=== PATIENT | female | born 1945 | race American Indian/Alaskan Native ===

== ENCOUNTER 2016-08-28 09:46 | Outpatient (CLI) | payer OTHER ==
--- NOTE | 2016-08-28 10:46 | Mammography Report ---
BILATERAL MAMMOGRAM: Compared to 08/26/15. CAD study utilized. FINDINGS: Predominance of adipose tissue bilaterally. Benign density left breast. No mass or microcalcification. IMPRESSION: Benign findings. Annual follow-up recommended. BI-RADS CATEGORY: 2 = Benign ACR BI-RADS MAMMOGRAPHIC CODES: 0 = Needs additional imaging evaluation; 1 = Negative; 2 = Benign; 3 = Probably benign; 4 = Suspicious; 5 = Malignant; 6 = Known biopsy-proven malignancy COMMENT: 1. Dense breast tissue, i.e., adenosis, fibrocystic changes, etc., may obscure an underlying neoplasm. 2. Approximately 10% of cancers are not detected with mammography. 3. A negative mammography report should not delay biopsy if a clinically suspicious mass is present. COMMENT: Patient follow-up letters are generated in [employer].
== END 2016-08-28 09:47 | disposition home or self-care (01) ==
LOC: MAMMO 09:46
PROVIDERS: ATTEND General Practice
DX: Z12.31 Encounter for screening mammogram for malignant neoplasm of breast (principal)
CPT/HCPCS: 77067; G0202

== ENCOUNTER 2016-10-29 12:10 | Inpatient (IN) | payer OTHER ==
[2016-10-29 13:05] LABS: Basophils % (Auto) 0.8 % (0.0-1.8); Eosinophils % (Auto) 1.7 % (0.0-4.3); Hematocrit 46.6 % (30.3-42.9); Hemoglobin 15.2 gm/dl (10.1-14.3); Mean Corpuscular HGB Conc 33 % (30-34); Mean Corpuscular Hemoglobin 29 pg (28-32); Mean Corpuscular Volume 88 fl (79-97); Platelet Count 601 K/mm3 (140-440); Red Blood Count 5.28 M/mm3 (3.65-5.03); Red Cell Distribution Width 14.8 % (13.2-15.2); White Blood Count 12.6 K/mm3 (4.5-11.0)
[2016-10-29] MEDS ORDERED: MORPHINE IV ONE (13:09)
[2016-10-29] MEDS ORDERED: ZOFRAN IV ONE (13:09)
--- NOTE | 2016-10-29 13:09 | Emergency Department Report ---
HPI - General Chief Complaint: Chest Pain Time Seen by Provider: 10/29/16 12:52 - HPI HPI: Room 2 The patient is a 70-year-old female presenting with a chief complaint of chest pain. The patient states this morning she felt "not steady." The patient states she checked her blood pressure and found to be 114/99 with a heart rate of 154. The patient states she felt as though she was going to pass out but never lost consciousness. Patient states she developed substernal chest tightness which is still present. Patient currently gives her chest tightness a score of 6/10. The patient admits to shortness of breath, diaphoresis and nausea without vomiting associated with chest tightness. The patient states her last stress test occurred and was abnormal. The patient states she's never had a cardiac catheterization Location: Chest Duration: [see above] Quality: Tightness Severity: 6/10 Modifying factors: [see above] Context: [see above] Mode of transportation: [not driving] ED Past Medical Hx - Past Medical History Previous Medical History?: Yes Hx Hypertension: Yes (4yrs) Hx GERD: Yes (1999) Hx Liver Disease: Yes (HEPATITIS C) Hx Asthma: Yes Additional medical history: Carpal tunnel syndrome - Surgical History Past Surgical History?: Yes Additional Surgical History: hysterectomy - Family History Family history: no significant - Social History Smoking Status: Current Every Day Smoker (1/4 pack per day) - Medications Home Medications: Home Medications Medication Instructions Recorded Confirmed Last Taken Type Esomeprazole Magnesium [NexIUM] 40 mg PO PRN PRN 09/01/14 10/04/15 Unknown History Fluticasone (Nf) [Flovent HFA] 2 puff IH DAILY 09/01/14 10/04/15 Unknown History HYDROcodone/ACETAMINOPHEN 1 tab PO Q6HR PRN 09/01/14 10/04/15 Unknown History [HYDROcodone-Acetaminophen 5-325] Levalbuterol Tartrate [Xopenex Hfa] 2 puff IH PRN 09/01/14 10/04/15 Unknown History Montelukast [Singulair] 10 mg PO DAILY PRN 09/01/14 10/04/15 Unknown History Lisinopril [Zestril TAB] 20 mg PO BID 10/04/15 10/04/15 Unknown History ED Review of Systems ROS: Stated complaint: PALPITATION, FEELING LIKE PASS OUT Other details as noted in HPI Comment: All other systems reviewed and negative Constitutional: diaphoresis Eyes: denies: eye pain, eye discharge, vision change ENT: denies: ear pain, throat pain Respiratory: shortness of breath Cardiovascular: chest pain, palpitations Endocrine: no symptoms reported Gastrointestinal: nausea. denies: abdominal pain, vomiting, diarrhea Genitourinary: denies: urgency, dysuria, discharge Musculoskeletal: denies: back pain, joint swelling, arthralgia Skin: denies: rash, lesions Neurological: denies: headache, weakness, paresthesias Psychiatric: denies: anxiety, depression Hematological/Lymphatic: denies: easy bleeding, easy bruising Physical Exam - Physical Exam Vital Signs: Vital Signs 10/29/16 12:26 Temperature 98.7 F Pulse Rate 85 Respiratory 20 Rate Blood Pressure 165/105 O2 Sat by Pulse 97 Oximetry Physical Exam: GENERAL: The patient is well-developed well-nourished female lying on stretcher not appearing to be in acute distress. [] HEENT: Normocephalic. Atraumatic. Extraocular motions are intact. Patient has moist mucous membranes. NECK: Supple. Trachea midline CHEST/LUNGS: Clear to auscultation. There is no respiratory distress noted. HEART/CARDIOVASCULAR: Regular. There is no tachycardia. There is no gallop rub or murmur. ABDOMEN: Abdomen is soft, nontender. Patient has normal bowel sounds. There is no abdominal distention. SKIN: There is no rash. There is no edema. There is no diaphoresis. NEURO: The patient is awake, alert, and oriented. The patient is cooperative. The patient has normal speech MUSCULOSKELETAL: There is no evidence of acute injury. ED Course Vital Signs 10/29/16 12:26 Temperature 98.7 F Pulse Rate 85 Respiratory 20 Rate Blood Pressure 165/105 O2 Sat by Pulse 97 Oximetry ED Medical Decision Making - Lab Data Result diagrams: 10/29/16 12:45 Laboratory Tests 10/29/16 10/29/16 12:45 12:45 WBC 12.6 H RBC 5.28 H Hgb 15.2 H Hct 46.6 H MCV 88 MCH 29 MCHC 33 RDW 14.8 Plt Count 601 H Lymph % (Auto) 30.5 [place] % (Auto) 9.7 H Eos % (Auto) 1.7 Baso % (Auto) 0.8 Lymph # 3.8 [place] # 1.2 H Eos # 0.2 Baso # 0.1 Seg Neutrophils % 57.3 Seg Neutrophils # 7.2 Sodium 141 Potassium 3.8 Chloride 103.6 Carbon Dioxide 21 L Anion Gap 20 BUN 9 Creatinine 0.6 L Estimated GFR > 60 BUN/Creatinine Ratio 15.00 Glucose 103 H Calcium 10.6 H Troponin T < 0.010 - EKG Data -: EKG Interpreted by Me EKG shows normal: sinus rhythm Rate: normal - EKG Data When compared to previous EKG there are: no significant change Interpretation: unchanged when compared t (10/10/2015) - Radiology Data Radiology results: image reviewed (chest x-ray) interpreted by me: Chest x-ray-no focal infiltrates, no pneumothorax - Differential Diagnosis ACS, pericarditis, GERD Critical care attestation.: If time is entered above; I have spent that time in minutes in the direct care of this critically ill patient, excluding procedure time. ED Disposition Clinical Impression: Chest pain, Hypercalcemia Disposition: OP ADMITTED IP TO THIS HOSP Is pt being admited?: Yes Does the pt Need Aspirin: No (allergy) Condition: Fair Instructions: Chest Pain (ED) Referrals: PRIMARY CARE, [Primary Care Provider] - 3-5 Days Time of Disposition: 13:23 (hospitalist paged)
[2016-10-29 13:16] LABS: Anion Gap 20 mmol/L; Blood Urea Nitrogen 9 mg/dL (7-17); Calcium 10.6 mg/dL (8.4-10.2); Carbon Dioxide 21 mmol/L (22-30); Chloride 103.6 mmol/L (98-107); Glucose 103 mg/dL (65-100); Potassium 3.8 mmol/L (3.6-5.0); Sodium 141 mmol/L (137-145)
[2016-10-29] MEDS ORDERED: NACL 0.9% 1000 ML 1,000 ML IV ONE (13:21)
[2016-10-29] MEDS ORDERED: PLAVIX PO ONE (13:22)
[2016-10-29] MEDS ORDERED: NITRO-BID 2% TP ONE (13:22)
--- NOTE | 2016-10-29 13:31 | History and Physical Report ---
History of Present Illness Chief complaint: My chest is hurting History of present illness: 70 YO Female with HTN, HCV, Nicotine Dependence, GERD, Asthma presents to ED for evaluation. Pt states that she awoke from sleep this morning and felt "not steady" and felt as though she was going to pass out. The patient states she checked her blood pressure and heart rate, and discovered a normal BP but a heart rate of 154. Patient states she subsequently developed pain in her chest. Pain is substernal, 6/10, nonradiating, not worsened with exertion, or relieved with rest. No associated with shortness of breath, diaphoresis. Pt denies prolonged travel/immobility,Individual/family history of DVT/PE, trauma, syncope, hemoptysis, productive cough, or recent ill contacts. Past History Past Medical History: GERD, hepatitis, hypertension Past Surgical History: hysterectomy Social history: , lives with family, smoking. denies: alcohol abuse, prescription drug abuse, IV drug use Family history: diabetes, hypertension Medications and Allergies Allergies Allergy/AdvReac Type Severity Reaction Status Date / Time amoxicillin Allergy Itching Verified 10/10/15 12:19 codeine Allergy GASTRIC Verified 10/10/15 12:19 IRRITATION aspirin AdvReac Nausea,GASTRIC Verified 10/10/15 12:19 IRRITATION Home Medications Medication Instructions Recorded Confirmed Last Taken Type Fluticasone (Nf) [Flovent HFA] 2 puff IH DAILY 09/01/14 10/29/16 Unknown History Levalbuterol Tartrate [Xopenex Hfa] 2 puff IH PRN 09/01/14 10/29/16 Unknown History Montelukast [Singulair] 10 mg PO DAILY 09/01/14 10/29/16 Unknown History Lisinopril [Zestril TAB] 40 mg PO DAILY 10/04/15 10/29/16 Unknown History Atenolol [Tenormin] 25 mg PO DAILY 10/29/16 10/29/16 Unknown History Active Meds: Active Medications Sodium Chloride (Nacl 0.9% 1000 Ml) 1,000 mls @ 999 mls/hr IV ONCE ONE Stop: 10/29/16 14:21 Review of Systems All systems: negative Cardiovascular: chest pain Exam - Constitutional Vitals: Temp Pulse Resp BP Pulse Ox 98.7 F 80 17 153/103 97 10/29/16 12:26 10/29/16 13:00 10/29/16 13:00 10/29/16 13:00 10/29/16 13:00 General appearance: Present: no acute distress, well-nourished - EENT Eyes: Present: PERRL ENT: hearing intact, clear oral mucosa - Neck Neck: Present: supple, normal ROM - Respiratory Respiratory effort: normal Respiratory: bilateral: CTA - Cardiovascular Heart Sounds: Present: S1 & S2. Absent: rub, click - Extremities Extremities: pulses symmetrical, No edema Peripheral Pulses: within normal limits - Abdominal General gastrointestinal: Present: soft, non-tender, non-distended, normal bowel sounds Female genitourinary: Present: normal - Integumentary Integumentary: Present: clear, warm, dry - Musculoskeletal Musculoskeletal: gait normal, strength equal bilaterally - Psychiatric Psychiatric: appropriate mood/affect, intact judgment & insight - Neurologic Neurologic: CNII-XII intact, moves all extremities Results - Labs CBC & Chem 7: 10/29/16 12:45 10/29/16 12:45 Labs: Abnormal lab results 10/29/16 10/29/16 Range/Units 12:45 12:45 WBC 12.6 H (4.5-11.0) K/mm3 RBC 5.28 H (3.65-5.03) M/mm3 Hgb 15.2 H (10.1-14.3) gm/dl Hct 46.6 H (30.3-42.9) % Plt Count 601 H (140-440) K/mm3 [place] % (Auto) 9.7 H (0.0-7.3) % [place] # 1.2 H (0.0-0.8) K/mm3 Carbon Dioxide 21 L (22-30) mmol/L Creatinine 0.6 L (0.7-1.2) mg/dL Glucose 103 H (65-100) mg/dL Calcium 10.6 H (8.4-10.2) mg/dL Assessment and Plan - Patient Problems (1) ACS (acute coronary syndrome) Current Visit: Yes Status: Acute Plan to address problem: Chest Pain protocol: Cardiology consulted, serial cardiac enzymes, ekg, telemetry, Echo, supportive care. (2) Accelerated hypertension Current Visit: Yes Status: Acute Plan to address problem: monitor bp q shift, continue current therapy (3) Malnutrition Current Visit: Yes Status: Acute Plan to address problem: Moderate-severe: Encourage increased protein intake, (4) GERD (gastroesophageal reflux disease) Current Visit: Yes Status: Acute Qualifiers: Esophagitis presence: E Plan to address problem: ppi therapy (5) Nicotine dependence Current Visit: Yes Status: Acute Qualifiers: Nicotine product type: N Substance use status: S Plan to address problem: Pt counseled, pt refused to pick quit date. (6) DVT prophylaxis Current Visit: Yes Status: Acute
[2016-10-29] MEDS ORDERED: NON-FORMULARY (Esomeprazole Magnesium [Nexium] 40 MG) PO PRN (13:54)
[2016-10-29] MEDS ORDERED: ZOFRAN IV PRN (13:56)
[2016-10-29] MEDS ORDERED: DULCOLAX PR PRN (13:56)
[2016-10-29] MEDS ORDERED: SODIUM CHLORIDE FLUSH SYRINGE 10 ML IV PRN ×2 (13:56→13:58)
[2016-10-29] MEDS ORDERED: MILK OF MAGNESIA PO PRN (13:56)
[2016-10-29] MEDS ORDERED: TYLENOL PO PRN (13:56)
[2016-10-29] MEDS ORDERED: LEVALBUTEROL TARTRATE IH SCH (14:00)
--- NOTE | 2016-10-29 14:02 | XRay Report ---
AP CHEST :10/29/16 12:36:00 CLINICAL: Cough and heart palpitations. COMPARISON:10/10/15 FINDINGS: Normal heart and pulmonary vasculature. The lungs are normally expanded and clear. Scoliosis of the thoracic spine and mild degenerative change of the right shoulder. IMPRESSION: No acute cardiopulmonary process.
[2016-10-29] MEDS ORDERED: PROTONIX PO PRN (14:28)
[2016-10-29 14:37] LABS: Creatine Kinase MB 2.3 ng/mL (0.0-4.0)
[2016-10-29 14:38] LABS: Creatine Kinase 134 units/L (30-135)
[2016-10-29] MEDS ORDERED: PROVENTIL IH PRN (14:39)
--- NOTE | 2016-10-29 14:48 | Ultrasound Report ---
FINAL REPORT PROCEDURE: US ABDOMEN COMPLETE TECHNIQUE: Real-time sonography in multiple planes of the abdomen was performed with image documentation. CPT 68990 HISTORY: ab pain COMPARISON: No prior studies are available for comparison. FINDINGS: Liver: Normal size and echotexture with no evidence of cystic or solid mass lesions. Gallbladder: Fluid filled. No gallstones, wall thickening, pericholecystic fluid, or sonographic Rosales's sign. Intrahepatic bile ducts: Normal caliber . Extrahepatic bile ducts: Normal caliber. Pancreas: Normal as visualized with suboptimal depiction of the pancreatic tail. Aorta: Visualized portions appear normal. IVC: Visualized portions appear normal. RIGHT kidney: Normal echotexture. No focal renal mass, calculus, or hydronephrosis. Length: 11.4cm. LEFT kidney: Normal echotexture. No focal renal mass, calculus, or hydronephrosis . Length: 11.3cm. Spleen: Normal size and echotexture. No focal lesions. Intraperitoneal fluid: None . Other: None . IMPRESSION: Normal Examination.
--- NOTE | 2016-10-29 17:19 | Consultation ---
History of Present Illness Consult date: 10/29/16 Consult reason: chest pain (palpitations and near syncopal episode) History of present illness: The patient is a 70-year-old female presenting with a chief complaint of chest pain. The patient states this morning she felt "not steady." The patient states she checked her blood pressure and found to be 114/99 with a heart rate of 154. The patient states she felt as though she was going to pass out but never lost consciousness. Patient states she developed substernal chest tightness which is still present. Patient currently gives her chest tightness a score of 6/10. The patient admits to shortness of breath, diaphoresis and nausea without vomiting associated with chest tightness. Past History Past Medical History: GERD, hepatitis, hypertension (since 2011 or so,being monitored by Dr.prathima Mccarty.), other (hx. 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 denies: alcohol abuse, prescription drug abuse, IV drug use Family history: diabetes, hypertension Medications and Allergies Allergies Allergy/AdvReac Type Severity Reaction Status Date / Time amoxicillin Allergy Itching Verified 10/10/15 12:19 codeine Allergy GASTRIC Verified 10/10/15 12:19 IRRITATION aspirin AdvReac Nausea,GASTRIC Verified 10/10/15 12:19 IRRITATION Home Medications Medication Instructions Recorded Confirmed Last Taken Type Fluticasone (Nf) [Flovent HFA] 2 puff IH DAILY 09/01/14 10/29/16 Unknown History Levalbuterol Tartrate [Xopenex Hfa] 2 puff IH PRN 09/01/14 10/29/16 Unknown History Montelukast [Singulair] 10 mg PO DAILY 09/01/14 10/29/16 Unknown History Lisinopril [Zestril TAB] 40 mg PO DAILY 10/04/15 10/29/16 Unknown History Atenolol [Tenormin] 25 mg PO DAILY 10/29/16 10/29/16 Unknown History Active Meds: Active Medications Acetaminophen (Tylenol) 650 mg PO Q4H PRN PRN Reason: Pain MILD(1-3)/Fever >100.5/ABDUL Albuterol (Proventil) 2.5 mg IH Q4HRT PRN PRN Reason: Shortness Of Breath Bisacodyl (Dulcolax) 10 mg MD QDAY PRN PRN Reason: Constipation unrelieved by MOM Fluticasone Propionate (Flonase) 100 mcg NS QDAY ZARI Lisinopril (Zestril) 20 mg PO BID ZARI Magnesium Hydroxide (Milk Of Magnesia) 30 ml PO Q4H PRN PRN Reason: Constipation Ondansetron HCl (Zofran) 4 mg IV Q8H PRN PRN Reason: N/V unrelieved by Reglan Pantoprazole Sodium (Protonix) 40 mg PO DAILY PRN PRN Reason: UPSET STOMACH Sodium Chloride (Sodium Chloride Flush Syringe 10 Ml) 10 ml IV PRN PRN PRN Reason: LINE FLUSH Review of Systems Constitutional: no weight gain Ears, nose, mouth and throat: no nasal discharge Cardiovascular: chest pain, palpitations, lightheadedness, shortness of breath Respiratory: shortness of breath Gastrointestinal: no abdominal pain Genitourinary Female: no dysuria Menstruation: post hysterectomy Musculoskeletal: no myalgias Integumentary: no rash Neurological: no paralysis Psychiatric: no anxiety Physical Examination Vital Signs Temp Pulse Resp BP Pulse Ox 98.7 F 85 20 165/105 97 10/29/16 12:26 10/29/16 12:26 10/29/16 12:26 10/29/16 12:26 10/29/16 12:26 General appearance: no acute distress HEENT: Positive: PERRL, Mucus Membranes Moist Neck: Positive: neck supple, trachea midline Cardiac: Positive: Reg Rate and Rhythm. Negative: Audible Murmur Lungs: Positive: clear to auscultation Neuro: Positive: Grossly Intact Abdomen: Positive: Unremarkable Skin: Negative: Rash Extremities: Absent: edema Results 10/29/16 12:45 10/29/16 12:45 Cardiac Enzymes 10/29/16 Range/Units 14:07 CK-MB (CK-2) 2.3 (0.0-4.0) ng/mL Laboratory Tests 10/29/16 10/29/16 12:45 14:07 Total Creatine Kinase 134 CK-MB (CK-2) 2.3 CK-MB (CK-2) Rel Index 1.7 Troponin T < 0.010 EKG interpretations - EKG Sinus rhythms and dysrhythmias: sinus rhythm AV and intraventricular conduction: 1 AV block, right bundle branch block, left anterior fascicular Repolarization changes or abnormalities: repolarization abn secondary to ventricular hypertrophy Assessment and Plan Patient was not feeling well when she woke up this morning and and around 11:00 patient started having rapid heartbeat, associated with anterior chest discomfort and feeling of passing out, did not pass out. This lasted for a while and got better. She was by herself at that time. When she checked her pulse, presently her heart rate is around 154/mt. Subsequently she was feeling well. She came to the emergency room. Patient was evaluated by Dr. Brian in the office in August of this year and had a stress test and echocardiogram done according to her, apparently was given atenolol. She was supposed to take 2 times a day if She has frequent palpitations and otherwise she was supposed to take once a day. She is taking atenolol regularly. Patient claims these episodes of palpitations and near syncope are of recent onset. Never passed out., Patient has a history of hypertension of 5 years and also history of asthma of similar duration. Otherwise no history of myocardial infarction or congestive heart failure. We will review the echocardiogram and stress test done in the office. Patient' s main problem appears to be palpitations and near syncopal episodes associated with chest pain. We'll monitor her in telemetry. Continue Atenolol. May consider cardiac catheterization if she continues to have recurrent chest pain. 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 Also states has rapid heartbeat. May need further evaluation with event recorder. - Patient Problems (1) Rapid palpitations Current Visit: Yes Status: Acute (2) Chest pain Current Visit: Yes Status: Acute Qualifiers: Chest pain type: C (3) Near syncope Current Visit: Yes Status: Acute
[2016-10-29 18:09] LABS: Creatine Kinase MB 2.4 ng/mL (0.0-4.0)
[2016-10-29 18:11] LABS: Creatine Kinase 121 units/L (30-135)
[2016-10-29 20:57] LABS: Creatine Kinase 105 units/L (30-135); Creatine Kinase MB 2.2 ng/mL (0.0-4.0)
[2016-10-29] MEDS: ZESTRIL PO SCH (22:34)
--- NOTE | 2016-10-30 03:41 | Admit Criteria Form ---
Admission Criteria Documentation: CHEST PAIN Clinical Indications for Admission to Inpatient Care (Place 'X' for any and all applicable criteria): Admission is indicated for chest pain and ANY ONE of the following(1)(2)(3)(4)(5 ): [X ]I. Angina with acute coronary syndrome (Also use Myocardial Infarction or Angina guideline) [ ]II. Hemodynamic instability [ ]III. Angina needing acute intervention as indicated by ALL of the following( 11)(12): [ ]a) Unstable angina is present as indicated by angina that is ANY ONE of the following: [ ]i) New onset [ ]ii) Nocturnal [ ]iii) Prolonged at rest [ ]iv) Progressive [ ]b) Angina warrants acute intervention as indicated by ANY ONE of the following: [ ]i) Recurrent angina (e.g, not responding as previously to treatment) [ ]ii) Angina at rest or with low-level activities despite initial medical therapy [ ]iii) New or presumably new ST-segment depression on ECG [ ]iv) Signs or symptoms of heart failure (eg, dyspnea, pulmonary edema) [ ]v) New or worsening mitral regurgitation [ ]vi) Hemodynamic instability [ ]vii) Dangerous arrhythmia (eg, sustained ventricular tachycardia) [ ]viii) History of percutaneous coronary intervention within 6 months [ ]ix) History of coronary artery bypass graft surgery [ ]x) TARA risk score of 2 or greater[A] [ ]xi) History of Diabetes(14) [ ]xii) High-risk cardiac ischemia findings on noninvasive testing (e.g, echocardiogram, treadmill testing, nuclear scan) [ ]xiii) Chronic renal insufficiency (ie, estimated GFR less than 60 mL/min/1.732m) [ ]xiv) Left ventricular ejection fraction less than 40% [ ]IV. Evidence of MS (eg, cardiac biomarkers positive, ST-segment elevation on ECG) also use Myocardial Infarction Criteria Form. [ ]V. Pulmonary edema [ ]. Respiratory distress [ ]VII. Chest pain indicative of serious diagnosis other than coronary artery disease (eg, aortic dissection) [ ]VIII. Contraindications and/or Inappropriate clinical situations for Observational Care in patients with Chest Pain, when ANY ONE of the following is required: [ ]a) Patient with risk factor for pulmonary embolism, acute coronary syndrome and myocardial infarction (18) [ ]b) Patient with Pulmonary embolism require an average LOS of 4.3 days, therefore emergency department observation management is inappropriate 18,23 [ ]c) Painful condition/s in the elderly, have the highest rate of recidivism after emergency department observation management (10.8%) 20,21,22 [ ]d) Elevated cardiac biomarker requires intensive and exhaustive care (19) [ ]IX. General contraindications and/or Inappropriate clinical situations for Observational Care in patients with Chest Pain, when ANY ONE of the following is required: [ ]a) Prediction of prolongation of LOS based on ANY ONE of the following may be considered as a contraindication for observational care 2, 3, 4, 5, 6, 7, 8, 9, 10, 11 [ ]i) Age > 65 yrs. [ ]ii) Patient arriving by ambulance [ ]iii) Patient with high acuity [ ]iv) Patient requiring vital sign monitoring [ ]v) Patient on IV medication [ ]b) Systolic blood pressures 180mmHg 3,12 [ ]c) Patient with altered mental status including delirium and other alteration of consciousness, (3) [ ]d) Patient whose discharge disposition will be to a snf home or rehabilitation home should not be managed in Emergency Department Observation Unit. CMS rule requires 3 days hospital stay before such placement. 3,13 [ ]e) Patient with failure to thrive due to broad array of etiologies 3,16,17 [ ]f) Inability to ambulate 3,14 Extended stay beyond goal length of stay may be needed for (1)(28): [ ]a) Specific condition diagnosed after evaluation (eg, pulmonary embolism, aortic dissection) [ ]b) Unstable angina [ ]c) Continued suspicion of acute coronary syndrome with inability to complete needed cardiac evaluation (eg, patient clinically unable to undergo stress testing) [ ]d) Myocardial infarction (Contents from ANGINA and CHEST PAIN clinical indications for admission to inpatient care have been integrated in this form) The original [email or web address] content created by [employer] has been revised. The portions of the content which have been revised are identified through the use of italic text or in bold, and [facility] has neither reviewed nor approved the modified material. All other unmodified content is copyright [facility]. Please see references footnoted in the original [email or web address] edition 2016 Admission Criteria Met: Yes
[2016-10-30 08:36] LABS: Anion Gap 17 mmol/L; BUN/Creatinine Ratio 13.33; Blood Urea Nitrogen 8 mg/dL (7-17); Calcium 9.6 mg/dL (8.4-10.2); Carbon Dioxide 23 mmol/L (22-30); Chloride 104.4 mmol/L (98-107); Glucose 91 mg/dL (65-100); Sodium 140 mmol/L (137-145)
[2016-10-30] MEDS: ZESTRIL PO SCH (09:31)
--- NOTE | 2016-10-30 09:52 | Progress Note ---
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 She checked her heart rate is 154. She had just seen Dr. Brian and had a stress test and echocardiogram August 2016. Chest x-ray is negative, abdominal ultrasound was negative, normal cardiac enzymes, troponin. -Tachycardia, acute on chronic worsening she supposed to be on atenolol: Cardiology to follow up -Chest pain, likely GERD related: Treat with PPI -Accelerated hypertension: Treat with Antihypertensive -Tobacco dependency, counseled on stopping, patient voices understanding and agreement -Leukocytosis most likely reactive without signs of infection and as evident by elevated platelet count/hct which may represent polycythemia due to COPD -DVT prophylaxis: add sq heparin Disposition: Discharge once cleared by cardiology History Interval history: Patient seen and examined. Follow up on palpitations, presyncope which has resolved. Overnight uneventful. No cp but she is on Nitropaste, sob, n/v or severe headaches. Imaging, old records, testing, labs, nursing notes reviewed. Plan discussed with patient. Hospitalist Physical - Physical exam Narrative exam: GEN: Thin frail tall, NAD, AWAKE, ALERT, ORIENTATED 3 HEENT: NCAT, PERRL, EOMI, OP CLEAR NECK: SUPPLE, NO THYROMEGALY, NO JVD, NO LAD CVS: RRR, NORMAL S1S2 LUNGS/CHEST: CTA B, NORMAL CHEST EXPANSION B, GOOD AIR ENTRY B ABD: SOFT NTND, GBS, NO REBOUND OR GUARDING EXT/SKIN: NO SIGNIFICANT EDEMA OR RASH MSK: FROM X 4 EXTREMITIES NEURO: CN 2-12 GROSSLY INTACT, NO new FOCAL DEFICITS PSY: CALM - Constitutional Vitals: Temp Pulse Resp BP Pulse Ox 98.1 F 55 L 18 139/67 97 10/30/16 09:09 10/30/16 09:09 10/30/16 09:09 10/30/16 09:09 10/30/16 09:09 General appearance: Present: no acute distress Results - Labs CBC & Chem 7: 10/29/16 12:45 10/30/16 07:06 Labs: Laboratory Last Values WBC 12.6 K/mm3 (4.5-11.0) H 10/29/16 12:45 RBC 5.28 M/mm3 (3.65-5.03) H 10/29/16 12:45 Hgb 15.2 gm/dl (10.1-14.3) H 10/29/16 12:45 Hct 46.6 % (30.3-42.9) H 10/29/16 12:45 MCV 88 fl (79-97) 10/29/16 12:45 MCH 29 pg (28-32) 10/29/16 12:45 MCHC 33 % (30-34) 10/29/16 12:45 RDW 14.8 % (13.2-15.2) 10/29/16 12:45 Plt Count 601 K/mm3 (140-440) H 10/29/16 12:45 Lymph % (Auto) 30.5 % (13.4-35.0) 10/29/16 12:45 [place] % (Auto) 9.7 % (0.0-7.3) H 10/29/16 12:45 Eos % (Auto) 1.7 % (0.0-4.3) 10/29/16 12:45 Baso % (Auto) 0.8 % (0.0-1.8) 10/29/16 12:45 Lymph # 3.8 K/mm3 (1.2-5.4) 10/29/16 12:45 [place] # 1.2 K/mm3 (0.0-0.8) H 10/29/16 12:45 Eos # 0.2 K/mm3 (0.0-0.4) 10/29/16 12:45 Baso # 0.1 K/mm3 (0.0-0.1) 10/29/16 12:45 Seg Neutrophils % 57.3 % (40.0-70.0) 10/29/16 12:45 Seg Neutrophils # 7.2 K/mm3 (1.8-7.7) 10/29/16 12:45 D-Dimer 200.36 ng/mlDDU (0-234) 10/29/16 13:30 Sodium 140 mmol/L (137-145) 10/30/16 07:06 Potassium 4.0 mmol/L (3.6-5.0) 10/30/16 07:06 Chloride 104.4 mmol/L (98-107) 10/30/16 07:06 Carbon Dioxide 23 mmol/L (22-30) 10/30/16 07:06 Anion Gap 17 mmol/L 10/30/16 07:06 BUN 8 mg/dL (7-17) 10/30/16 07:06 Creatinine 0.6 mg/dL (0.7-1.2) L 10/30/16 07:06 Estimated GFR > 60 ml/min 10/30/16 07:06 BUN/Creatinine Ratio 13.33 % 10/30/16 07:06 Glucose 91 mg/dL (65-100) 10/30/16 07:06 Calcium 9.6 mg/dL (8.4-10.2) 10/30/16 07:06 Total Creatine Kinase 105 units/L (30-135) 10/29/16 20:17 CK-MB (CK-2) 2.2 ng/mL (0.0-4.0) 10/29/16 20:17 CK-MB (CK-2) Rel Index 2.0 (0-4) 10/29/16 20:17 Troponin T < 0.010 ng/mL (0.00-0.029) 10/29/16 20:17 TSH 1.190 mlU/mL (0.270-4.200) 10/30/16 07:06 - Imaging and Cardiology EKG: image reviewed Chest x-ray: report reviewed CT Scan - head: report reviewed
--- NOTE | 2016-10-30 09:58 | Discharge Summary ---
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 When she checked her heart rate it is 154. She had just seen Dr. Brian and had a office stress test and echocardiogram August 2016. Chest x-ray is negative, abdominal ultrasound was negative, normal cardiac enzymes, troponin. -Tachyarrhythmia, acute on chronic worsening she supposed to be on atenolol: Cardiology to follow up -Chest pain, likely GERD related: Treat with PPI -Accelerated hypertension: Treat with Antihypertensive -Tobacco dependency, counseled on stopping, patient voices understanding and agreement -Leukocytosis most likely reactive without signs of infection and as evident by elevated platelet count/hct which may represent polycythemia due to COPD -DVT prophylaxis: add sq heparin Disposition: Discharge once cleared by cardiology==>d/c Cardiology, Dr. Herron, ok for discharge, she needs Event monitor setup as outpatient. He will make her appointment. Disposition: DISCHARGED TO HOME OR SELFCARE Time spent for discharge: 31 minutes Core Measure Documentation - Palliative Care Palliative Care/ Comfort Measures: Not Applicable - Core Measures Any of the following diagnoses?: none - VTE Discharge Requirements Deep Vein Thrombosis/Pulmonary Embolism Present on Admission: No Has pt received <5 days of overlap therapy or INR<2.0: No Anticoagulant overlap therapy prescribed at discharge: No Contraindication No Overlap Therapy order at DC: Not Indicated Exam - Physical Exam Narrative exam: GEN: Thin frail tall, NAD, AWAKE, ALERT, ORIENTATED 3 HEENT: NCAT, PERRL, EOMI, OP CLEAR NECK: SUPPLE, NO THYROMEGALY, NO JVD, NO LAD CVS: RRR, NORMAL S1S2 LUNGS/CHEST: CTA B, NORMAL CHEST EXPANSION B, GOOD AIR ENTRY B ABD: SOFT NTND, GBS, NO REBOUND OR GUARDING EXT/SKIN: NO SIGNIFICANT EDEMA OR RASH MSK: FROM X 4 EXTREMITIES NEURO: CN 2-12 GROSSLY INTACT, NO new FOCAL DEFICITS PSY: CALM - Constitutional Vitals: Temp Pulse Resp BP Pulse Ox 98.1 F 55 L 18 139/67 97 10/30/16 09:09 10/30/16 09:09 10/30/16 09:09 10/30/16 09:09 10/30/16 09:09 Plan Activity: advance as tolerated (no strenous activites until cleared by cardiology), no driving until cleared by PCP Diet: low salt Special Instructions: record daily BP diary, smoking cessation Follow up with: PRIMARY CARE, [Primary Care Provider] - 3-5 Days Prescriptions: Pantoprazole [Protonix TAB] 40 mg PO QDAY #30 tablet
[2016-10-30] MEDS ORDERED: PROTONIX PO SCH (10:00)
[2016-10-30] MEDS ORDERED: FLONASE NS SCH (10:00)
[2016-10-30] MEDS ORDERED: FLUTICASONE IH SCH (10:00)
--- NOTE | 2016-10-30 10:49 | Progress Note ---
Assessment and Plan Assessment: Palpitations - TSH WNL, tele reveals no arrhythmias. Near-syncope Chest pain, atypical - ECG with no acute ST or T wave abnormalities; cardiac enzymes negative for AMI; currently resolved. H/o paroxysmal SVT HTN Plan: Office records reviewed - pt underwent lexiscan MPI in 05/2016 which revealed small area of infarction in the apical anterior myocardial wall, EF 73%, no large areas of ischemia; echo 04/2016 revealed EF 55 - 60%, mild diastolic dysfunction, mild MR, mild to moderate TR: Holter study 04/2016 revealed predominate rhythym of SR/SB (rates as low as 47bpm at night) and short runs of SVT - atenolol 25mg PO QDay was initiated. Currently stable cardiac status. Cont current medical management. Await echo. The patient has been seen in conjunction with Dr. Herron who agrees with the assessment and plan of care. Subjective Date of service: 10/30/16 Principal diagnosis: palpitations; near-syncope Interval history: Pt with no current complaints, ambulating around room without difficulty, just returned from echo. Tele reviewed - in SR/SB with RBBB, noted to have some 1-3 second pauses overnight. Objective Last Vital Signs Temp 98.1 F 10/30/16 09:09 Pulse 55 L 10/30/16 09:09 Resp 18 10/30/16 09:09 BP 139/67 10/30/16 09:09 Pulse Ox 97 10/30/16 09:09 - Physical Examination General: Appears Well, No Apparent Distress HEENT: Positive: PERRL, Mucus Membranes Moist Neck: Positive: neck supple, trachea midline Cardiac: Positive: Reg Rate and Rhythm, S1/S2 Lungs: Positive: Normal Exam, clear to auscultation, Normal Breath Sounds Neuro: Positive: Grossly Intact Abdomen: Positive: Unremarkable, Soft, Active Bowel Sounds. Negative: Tender Skin: Positive: Clear. Negative: Rash, Wound Musculoskeletal: No Fluid Collection Extremities: Present: upper extr. pulses, lower extr. pulses. Absent: edema - Labs and Meds Cardiac Enzymes 10/29/16 10/29/16 10/29/16 Range/Units 14:07 17:02 20:17 CK-MB (CK-2) 2.3 2.4 2.2 (0.0-4.0) ng/mL Comprehensive Metabolic Panel 10/30/16 Range/Units 07:06 Sodium 140 (137-145) mmol/L Potassium 4.0 (3.6-5.0) mmol/L Chloride 104.4 (98-107) mmol/L Carbon Dioxide 23 (22-30) mmol/L BUN 8 (7-17) mg/dL Creatinine 0.6 L (0.7-1.2) mg/dL Glucose 91 (65-100) mg/dL Calcium 9.6 (8.4-10.2) mg/dL - Imaging and Cardiology EKG: image reviewed Echo: pending - Telemetry EKG Rhythm: Sinus Rhythm - EKG Sinus rhythms and dysrhythmias: sinus rhythm AV and intraventricular conduction: 1 AV block, right bundle branch block, left anterior fascicular Repolarization changes or abnormalities: repolarization abn secondary to ventricular hypertrophy
[2016-10-30 14:44] VITALS: BP 146/78
[2016-10-31] MEDS ORDERED: HEPARIN SUB-Q SCH (10:00)
== END 2016-10-30 15:55 | disposition home or self-care (01) | DRG 391 ==
LOC: ED 12:10 → 4A 13:56
PROVIDERS: ADMIT Internal Medicine; ATTEND Internal Medicine
DX: K21.9 Gastro-esophageal reflux disease without esophagitis (principal); E43 Unspecified severe protein-calorie malnutrition; F17.200 Nicotine dependence, unspecified, uncomplicated; I10 Essential (primary) hypertension; B19.20 Unspecified viral hepatitis C without hepatic coma; F17.210 Nicotine dependence, cigarettes, uncomplicated; E83.52 Hypercalcemia; R00.0 Tachycardia, unspecified; J44.9 Chronic obstructive pulmonary disease, unspecified; D75.1 Secondary polycythemia; R00.2 Palpitations; R55 Syncope and collapse; Z68.22 Body mass index [BMI] 22.0-22.9, adult; Z88.1 Allergy status to other antibiotic agents; Z88.5 Allergy status to narcotic agent; Z88.6 Allergy status to analgesic agent; Z79.899 Other long term (current) drug therapy; Z90.710 Acquired absence of both cervix and uterus; Z82.49 Family history of ischemic heart disease and other diseases of the circulatory system; Z83.3 Family history of diabetes mellitus
CPT/HCPCS: 36415; 71010; 76700; 80048; 82550; 82553; 84443; 84484; 85025; 85379; 93005; 93010; 93306; 96361; 96374; 96375; 99406; J2270; J2405; J7030

== ENCOUNTER 2017-09-18 08:30 | Outpatient (CLI) | payer OTHER ==
--- NOTE | 2017-09-19 08:12 | Mammography Report ---
BILATERAL MAMMOGRAM: FINDINGS: The breasts are almost entirely fat (<25% glandular). No mass, distortion, suspicious calcification, or skin change is seen. No significant change when compared to prior exams dating back to August 2015. CAD was utilized. IMPRESSION: Negative mammogram. There is no mammographic evidence of malignancy. RECOMMENDATION: Follow-up per ACS guidelines. BI-RADS CATEGORY: 1 = Negative ACR BI-RADS MAMMOGRAPHIC CODES: 0 = Needs additional imaging evaluation; 1 = Negative; 2 = Benign; 3 = Probably benign; 4 = Suspicious; 5 = Malignant; 6 = Known biopsy-proven malignancy COMMENT: 1. Dense breast tissue, i.e., adenosis, fibrocystic changes, etc., may obscure an underlying neoplasm. 2. Approximately 10% of cancers are not detected with mammography. 3. A negative mammography report should not delay biopsy if a clinically suspicious mass is present. COMMENT: Patient follow-up letters are generated in [employer].
== END 2017-09-18 08:31 | disposition home or self-care (01) ==
LOC: MAMMO 08:30
PROVIDERS: ATTEND General Practice
DX: Z12.31 Encounter for screening mammogram for malignant neoplasm of breast (principal)
CPT/HCPCS: 77067

== ENCOUNTER 2018-09-19 07:41 | Outpatient (CLI) | payer MEDICAID, OTHER ==
--- NOTE | 2018-09-19 09:34 | Mammography Report ---
BILATERAL DIGITAL SCREENING MAMMOGRAM with CAD: 09/19/18 07:41:00 CLINICAL: Routine screening. COMPARISON:09/18/17 and 09/25/16 FINDINGS: The breasts are almost entirely fatty. No mass, architectural distortion or suspicious calcifications. IMPRESSION: No mammographic evidence of malignancy. BI-RADS CATEGORY: 1 - - Negative RECOMMENDATION: Routine mammographic screening in one year. COMMENT: Patient follow-up letters are generated by our [employer] application.
== END 2018-09-19 07:42 | disposition home or self-care (01) ==
LOC: MAMMO 07:41
PROVIDERS: ATTEND Advanced Practice Midwife
DX: Z12.31 Encounter for screening mammogram for malignant neoplasm of breast (principal); I10 Essential (primary) hypertension; J45.909 Unspecified asthma, uncomplicated; K21.9 Gastro-esophageal reflux disease without esophagitis
CPT/HCPCS: 77067

== ENCOUNTER 2019-02-01 14:16 | Inpatient (IN) | payer MEDICAID ==
[2019-02-01] MEDS ORDERED: ASPIRIN PO ONE (14:56)
[2019-02-01] MEDS ORDERED: CARDIZEM IV ONE (14:58)
--- NOTE | 2019-02-01 15:06 | Emergency Department Report ---
ED Palpitations HPI - General Chief Complaint: Chest Pain Stated Complaint: CHEST PAIN/PRESSURE Time Seen by Provider: 02/01/19 14:47 Source: patient Mode of arrival: Ambulatory Limitations: No Limitations - History of Present Illness Initial Comments: This is a 73-year-old female with an experience of palpitations and a rapid heart rate since this morning. She has been previously seen at this facility for similar complaint but has no history of atrial fibrillation. She has never placed on an anticoagulant. She in 2017 she was found to have a first-degree AV block and right bundle branch block as well as left axis deviation/LAFB. She was not diagnosed with A. fib. An echocardiogram at that time showed an EF of 55-60% with left atrial enlargement but I do not see any other substantial abnormality. 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 The patient does not complain of chest pain or shortness of breath. She states that she was nauseated but did not vomit this morning. MD Complaint: rapid heart beat -: Gradual Associated Symptoms: denies other symptoms - Related Data Home Medications Medication Instructions Recorded Confirmed Last Taken Fluticasone (Nf) [Flovent HFA] 2 puff IH DAILY 09/01/14 10/29/16 Unknown Levalbuterol Tartrate [Xopenex Hfa] 2 puff IH PRN 09/01/14 10/29/16 Unknown Montelukast [Singulair] 10 mg PO DAILY 09/01/14 10/29/16 Unknown Lisinopril [Zestril TAB] 40 mg PO DAILY 10/04/15 10/29/16 Unknown Atenolol [Tenormin] 25 mg PO DAILY 10/29/16 10/29/16 Unknown Previous Rx's Medication Instructions Recorded Last Taken Type Pantoprazole [Protonix TAB] 40 mg PO QDAY #30 tablet 10/30/16 Unknown Rx Ondansetron [Zofran ODT TAB] 8 mg PO Q8HR PRN #12 tab.rapdis 06/28/18 Unknown Rx Clindamycin [Clindamycin CAP] 300 mg PO Q8H 10 Days #30 cap 07/20/18 Unknown Rx traMADol [Ultram 50 MG tab] 50 mg PO Q6HR PRN #12 tablet 07/20/18 Unknown Rx Allergies Allergy/AdvReac Type Severity Reaction Status Date / Time amoxicillin Allergy Itching Verified 06/28/18 13:29 codeine Allergy GASTRIC Verified 06/28/18 13:29 IRRITATION aspirin AdvReac Nausea,GASTRIC Verified 06/28/18 13:29 IRRITATION ED Review of Systems ROS: Stated complaint: CHEST PAIN/PRESSURE Other details as noted in HPI Constitutional: denies: chills, fever Eyes: denies: eye pain, eye discharge, vision change ENT: denies: ear pain, throat pain Respiratory: denies: cough, shortness of breath, wheezing Cardiovascular: palpitations. denies: chest pain Endocrine: no symptoms reported Gastrointestinal: nausea. denies: abdominal pain, vomiting, diarrhea Genitourinary: denies: urgency, dysuria, discharge Musculoskeletal: denies: back pain, joint swelling, arthralgia Skin: denies: rash, lesions Neurological: denies: headache, weakness, paresthesias Psychiatric: denies: anxiety, depression Hematological/Lymphatic: denies: easy bleeding, easy bruising ED Past Medical Hx - Past Medical History Hx Hypertension: Yes Hx Congestive Heart Failure: No Hx Diabetes: No Hx GERD: Yes (1999) Hx Liver Disease: Yes (HEPATITIS C) Hx Headaches / Migraines: Yes Hx Seizures: No Hx Asthma: Yes Hx COPD: No Hx Dementia: No Additional medical history: Carpal tunnel syndrome - Surgical History Hx Pacemaker: No Additional Surgical History: hysterectomy - Social History Smoking Status: Never Smoker Substance Use Type: Alcohol, Prescribed - Medications Home Medications: Home Medications Medication Instructions Recorded Confirmed Last Taken Type Fluticasone (Nf) [Flovent HFA] 2 puff IH DAILY 09/01/14 10/29/16 Unknown History Levalbuterol Tartrate [Xopenex Hfa] 2 puff IH PRN 09/01/14 10/29/16 Unknown History Montelukast [Singulair] 10 mg PO DAILY 09/01/14 10/29/16 Unknown History Lisinopril [Zestril TAB] 40 mg PO DAILY 10/04/15 10/29/16 Unknown History Atenolol [Tenormin] 25 mg PO DAILY 10/29/16 10/29/16 Unknown History Pantoprazole [Protonix TAB] 40 mg PO QDAY #30 tablet 10/30/16 Unknown Rx Ondansetron [Zofran ODT TAB] 8 mg PO Q8HR PRN #12 tab.rapdis 06/28/18 Unknown Rx Clindamycin [Clindamycin CAP] 300 mg PO Q8H 10 Days #30 cap 07/20/18 Unknown Rx traMADol [Ultram 50 MG tab] 50 mg PO Q6HR PRN #12 tablet 07/20/18 Unknown Rx ED Physical Exam - General Limitations: No Limitations General appearance: alert, in no apparent distress - Head Head exam: Present: atraumatic, normocephalic - Eye Eye exam: Present: normal appearance. Absent: scleral icterus - ENT ENT exam: Present: mucous membranes moist - Neck Neck exam: Present: normal inspection - Respiratory Respiratory exam: Present: normal lung sounds bilaterally. Absent: respiratory distress - Cardiovascular Cardiovascular Exam: Present: tachycardia, irregular rhythm. Absent: systolic murmur, diastolic murmur, rubs, gallop - GI/Abdominal GI/Abdominal exam: Present: soft, normal bowel sounds. Absent: distended, tende rness, guarding, rebound - Extremities Exam Extremities exam: Present: normal inspection. Absent: calf tenderness - Back Exam Back exam: Present: normal inspection - Neurological Exam Neurological exam: Present: alert, oriented X3, CN II-XII intact. Absent: motor sensory deficit - Psychiatric Psychiatric exam: Present: normal affect, normal mood - Skin Skin exam: Present: warm, dry, intact, normal color. Absent: rash ED Course Vital Signs 02/01/19 02/01/19 02/01/19 14:40 15:01 15:21 Pulse Rate 149 H 107 H Respiratory 26 H 19 Rate Blood Pressure 167/87 O2 Sat by Pulse 99 100 Oximetry 02/01/19 15:43 Pulse Rate 168 H Respiratory Rate Blood Pressure 150/97 O2 Sat by Pulse Oximetry ED Medical Decision Making - Lab Data Result diagrams: 02/01/19 15:00 02/01/19 15:00 Laboratory Results - last 24 hr 02/01/19 02/01/19 02/01/19 15:00 15:00 15:00 WBC 10.8 RBC 4.19 Hgb 13.7 Hct 41.6 MCV 99 H MCH 33 H MCHC 33 RDW 17.5 H Plt Count 513 H Lymph % (Auto) 27.4 [place] % (Auto) 7.2 Eos % (Auto) 0.8 Baso % (Auto) 0.9 Lymph # 2.9 [place] # 0.8 Eos # 0.1 Baso # 0.1 Seg Neutrophils % 63.7 Seg Neutrophils # 6.9 Sodium 146 H Potassium 3.9 Chloride 107.6 H Carbon Dioxide 24 Anion Gap 18 BUN 12 Creatinine 0.7 Estimated GFR > 60 BUN/Creatinine Ratio 17 Glucose 112 H Calcium 10.6 H Troponin T < 0.010 NT-Pro-B Natriuret Pep Urine Color Colorless Urine Turbidity Clear Urine pH 7.0 Ur Specific [place] 1.001 L Urine Protein <15 mg/dl Urine Glucose (UA) Neg Urine Ketones Neg Urine Blood Neg Urine Nitrite Neg Urine Bilirubin Neg Urine Urobilinogen < 2.0 Ur Leukocyte Esterase Neg Urine WBC (Auto) 0.0 Urine RBC (Auto) 1.0 02/01/19 15:00 WBC RBC Hgb Hct MCV MCH MCHC RDW Plt Count Lymph % (Auto) [place] % (Auto) Eos % (Auto) Baso % (Auto) Lymph # [place] # Eos # Baso # Seg Neutrophils % Seg Neutrophils # Sodium Potassium Chloride Carbon Dioxide Anion Gap BUN Creatinine Estimated GFR BUN/Creatinine Ratio Glucose Calcium Troponin T NT-Pro-B Natriuret Pep 102.7 Urine Color Urine Turbidity Urine pH Ur Specific [place] Urine Protein Urine Glucose (UA) Urine Ketones Urine Blood Urine Nitrite Urine Bilirubin Urine Urobilinogen Ur Leukocyte Esterase Urine WBC (Auto) Urine RBC (Auto) - EKG Data -: EKG Interpreted by Me Rate: tachycardia - EKG Data I would call the rhythm atrial fib flutter. Left anterior fascicular block/right bundle-branch block thereby bifascicular block. No acute ischemic changes. 02/01/19 16:01 - Radiology Data interpreted by me: Chest x-ray. I don't see anything acute. Critical care attestation.: If time is entered above; I have spent that time in minutes in the direct care of this critically ill patient, excluding procedure time. ED Disposition Clinical Impression: Atrial fibrillation with RVR Disposition: -09 OP ADMIT IP TO THIS HOSP Is pt being admited?: Yes Does the pt Need Aspirin: Yes Condition: Stable Time of Disposition: 16:31
[2019-02-01 15:29] LABS: Basophils # (Auto) 0.1 K/mm3 (0.0-0.1); Basophils % (Auto) 0.9 % (0.0-1.8); Eosinophils # (Auto) 0.1 K/mm3 (0.0-0.4); Eosinophils % (Auto) 0.8 % (0.0-4.3); Hematocrit 41.6 % (30.3-42.9); Hemoglobin 13.7 gm/dl (10.1-14.3); Lymphocytes # (Auto) 2.9 K/mm3 (1.2-5.4); Lymphocytes % (Auto) 27.4 % (13.4-35.0); Mean Corpuscular HGB Conc 33 % (30-34); Mean Corpuscular Hemoglobin 33 pg (28-32); Mean Corpuscular Volume 99 fl (79-97); Monocytes # (Auto) 0.8 K/mm3 (0.0-0.8); Monocytes % (Auto) 7.2 % (0.0-7.3); Platelet Count 513 K/mm3 (140-440); Red Blood Count 4.19 M/mm3 (3.65-5.03); Red Cell Distribution Width 17.5 % (13.2-15.2)
[2019-02-01] MEDS ORDERED: CARDIZEM/D5W 100MG/100ML 100 MG/100 ML BAG IV SCH (15:30)
[2019-02-01 15:42] LABS: Bilirubin,Urine NEG (Negative); Blood,Urine NEG (Negative); Color,Urine Colorless (Yellow); Protein,Urine <15 mg/dL mg/dL (Negative); Urobilinogen,Urine < 2.0 mg/dL (<2.0)
[2019-02-01 15:59] LABS: BUN/Creatinine Ratio 17; Blood Urea Nitrogen 12 mg/dL (7-17); Calcium 10.6 mg/dL (8.4-10.2); Hemolysis Index 67
[2019-02-01 16:00] LABS: Alanine Aminotransferase 32 units/L (7-56); Albumin 4.5 g/dL (3.9-5)
[2019-02-01 16:07] LABS: Free T4 (Free Thyroxine) 1.05 ng/dL (0.76-1.46)
[2019-02-01 16:09] LABS: Bilirubin,Direct < 0.2 mg/dL (0-0.2)
--- NOTE | 2019-02-01 16:17 | XRay Report ---
CHEST 1 VIEW INDICATION / CLINICAL INFORMATION: Chest Pain. COMPARISON: None available. FINDINGS: SUPPORT DEVICES: None. HEART / MEDIASTINUM: No significant abnormality. LUNGS / PLEURA: No significant pulmonary or pleural abnormality. No pneumothorax. ADDITIONAL FINDINGS: No significant additional findings. IMPRESSION: 1. No acute findings. Signer Name: Juan Soliz MD Signed: 02/01/2019 4:13 PM Workstation Name: [id number]
[2019-02-01 16:39] LABS: INR 1.07 (0.87-1.13)
[2019-02-01 16:40] LABS: Partial Thromboplastin Time 30.5 Sec. (24.2-36.6)
[2019-02-01] MEDS ORDERED: CARDIZEM ONE (19:58)
[2019-02-01] MEDS: CARDIZEM PO SCH ×2 (19:59→23:29)
[2019-02-01] MEDS ORDERED: NITROSTAT SL PRN (21:59)
[2019-02-01] MEDS ORDERED: TYLENOL PO PRN (22:00)
--- NOTE | 2019-02-01 22:40 | History and Physical Report ---
History of Present Illness Date of examination: 02/01/19 Date of admission: 02/01/19 16:41 Chief complaint: Palpitations since morning History of present illness: 73-year-old female with history of hypertension asthma and GERD comes in for palpitations and chest pain since morning. Chest pain and palpitations or intermittent. No diaphoresis. No shortness of breath. Patient had similar episode in 2017 and was treated. 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 Not on anticoagulation. Ejection fraction showed 55-60% at that time. Last cardiology progress note--10/30/2016 --------- Office records reviewed - pt underwent lexiscan MPI in 05/2016 which revealed small area of infarction in the apical anterior myocardial wall, EF 73%, no large areas of ischemia; echo 04/2016 revealed EF 55 - 60%, mild diastolic dysf unction, mild MR, mild to moderate TR: Holter study 04/2016 revealed predominate rhythym of SR/SB (rates as low as 47bpm at night) and short runs of SVT - atenolol 25mg PO QDay was initiated. Currently stable cardiac status. Cont current medical management. Await echo. The patient has been seen in conjunction with Dr. Herron who agrees with the assessment and plan of care. Past Medical History Hypertension: Yes GERD: Yes (1999) Liver Disease: Yes (HEPATITIS C) Headaches / Migraines: Yes Asthma: Yes Additional medical history: Carpal tunnel syndrome Surgical History Pacemaker: No Additional Surgical History: hysterectomy Social History Smoking Status: Never Smoker Substance Use Type: Alcohol, Prescribed Family history Htn - Medications Home Medications: Home Medications Medication Instructions Recorded Confirmed Last Taken Type Fluticasone (Nf) [Flovent HFA] 2 puff IH DAILY 09/01/14 10/29/16 Unknown History Levalbuterol Tartrate [Xopenex Hfa] 2 puff IH PRN 09/01/14 10/29/16 Unknown History Montelukast [Singulair] 10 mg PO DAILY 09/01/14 10/29/16 Unknown History Lisinopril [Zestril TAB] 40 mg PO DAILY 10/04/15 10/29/16 Unknown History Atenolol [Tenormin] 25 mg PO DAILY 10/29/16 10/29/16 Unknown History Pantoprazole [Protonix TAB] 40 mg PO QDAY #30 tablet 10/30/16 Unknown Rx Ondansetron [Zofran ODT TAB] 8 mg PO Q8HR PRN #12 tab.rapdis 06/28/18 Unknown Rx Clindamycin [Clindamycin CAP] 300 mg PO Q8H 10 Days #30 cap 07/20/18 Unknown Rx traMADol [Ultram 50 MG tab] 50 mg PO Q6HR PRN #12 tablet 07/20/18 Unknown Rx Review of Systems ROS: Stated complaint: CHEST PAIN/PRESSURE Other details as noted in HPI Constitutional: denies: chills, fever Eyes: denies: eye pain, eye discharge, vision change ENT: denies: ear pain, throat pain Respiratory: denies: cough, shortness of breath, wheezing Cardiovascular: palpitations. denies: chest pain Endocrine: no symptoms reported Gastrointestinal: nausea. denies: abdominal pain, vomiting, diarrhea Genitourinary: denies: urgency, dysuria, discharge Musculoskeletal: denies: back pain, joint swelling, arthralgia Skin: denies: rash, lesions Neurological: denies: headache, weakness, paresthesias Psychiatric: denies: anxiety, depression Hematological/Lymphatic: denies: easy bleeding, easy bruising Medications and Allergies Allergies Allergy/AdvReac Type Severity Reaction Status Date / Time amoxicillin Allergy Itching Verified 06/28/18 13:29 codeine Allergy GASTRIC Verified 06/28/18 13:29 IRRITATION aspirin AdvReac Nausea,GASTRIC Verified 06/28/18 13:29 IRRITATION Home Medications Medication Instructions Recorded Confirmed Last Taken Type Aspirin [Aspirin BABY CHEW TAB] 81 mg PO QDAY 02/01/19 02/01/19 Unknown History Hydroxyurea [Hydrea] 500 mg PO QDAY 02/01/19 02/01/19 Unknown History Lisinopril [Zestril TAB] 40 mg PO QDAY 02/01/19 02/01/19 Unknown History Mometasone/Formoterol [Dulera 200 2 puff IH BID 02/01/19 02/01/19 Unknown History Mcg/5 Mcg Inhaler] buPROPion HCl [Wellbutrin SR] 200 mg PO BID 02/01/19 02/01/19 Unknown History Active Meds: Active Medications Acetaminophen (Tylenol) 650 mg PO Q4H PRN PRN Reason: Pain, Mild (1-3); Fever >101 Last Admin: 02/01/19 22:10 Dose: 650 mg Documented by: Diltiazem HCl (Cardizem) 60 mg PO Q6HR ZARI Last Admin: 02/01/19 19:59 Dose: 60 mg Documented by: Diltiazem HCl (Cardizem/D5w 100mg/100ml) 100 mg in 100 mls @ 5 mls/hr IV TITR ZARI; Protocol Last Admin: 02/01/19 16:17 Dose: 5 mg/hr, 5 mls/hr Documented by: Morphine Sulfate (Morphine) 2 mg IV Q4H PRN PRN Reason: Pain, Moderate (4-6) Nitroglycerin (Nitrostat) 0.4 mg SL .Q5MIN PRN PRN Reason: Chest Pain Last Admin: 02/01/19 22:10 Dose: 0.4 mg Documented by: Exam - Constitutional Vitals: Temp Pulse Resp BP Pulse Ox 65 21 132/71 98 02/01/19 22:10 02/01/19 20:31 02/01/19 22:10 02/01/19 20:31 General appearance: Present: no acute distress, well-nourished - EENT Eyes: Present: PERRL ENT: hearing intact, clear oral mucosa - Neck Neck: Present: supple, normal ROM - Respiratory Respiratory effort: normal Respiratory: bilateral: CTA - Cardiovascular Heart rate: 130 Rhythm: regular Heart Sounds: Present: S1 & S2. Absent: rub, click - Extremities Extremities: no ischemia, pulses intact, pulses symmetrical, No edema Peripheral Pulses: within normal limits - Abdominal General gastrointestinal: Present: soft, non-tender, non-distended, normal bowel sounds Female genitourinary: Present: normal - Integumentary Integumentary: Present: clear, warm, dry - Musculoskeletal Musculoskeletal: gait normal, strength equal bilaterally - Psychiatric Psychiatric: appropriate mood/affect, intact judgment & insight - Neurologic Neurologic: CNII-XII intact, moves all extremities - Allied Health Allied health notes reviewed: nursing, case management Results - Labs CBC & Chem 7: 02/01/19 15:00 02/01/19 15:00 Labs: Laboratory Last Values WBC 10.8 K/mm3 (4.5-11.0) 02/01/19 15:00 RBC 4.19 M/mm3 (3.65-5.03) 02/01/19 15:00 Hgb 13.7 gm/dl (10.1-14.3) 02/01/19 15:00 Hct 41.6 % (30.3-42.9) 02/01/19 15:00 MCV 99 fl (79-97) H 02/01/19 15:00 MCH 33 pg (28-32) H 02/01/19 15:00 MCHC 33 % (30-34) 02/01/19 15:00 RDW 17.5 % (13.2-15.2) H 02/01/19 15:00 Plt Count 513 K/mm3 (140-440) H 02/01/19 15:00 Lymph % (Auto) 27.4 % (13.4-35.0) 02/01/19 15:00 [place] % (Auto) 7.2 % (0.0-7.3) 02/01/19 15:00 Eos % (Auto) 0.8 % (0.0-4.3) 02/01/19 15:00 Baso % (Auto) 0.9 % (0.0-1.8) 02/01/19 15:00 Lymph # 2.9 K/mm3 (1.2-5.4) 02/01/19 15:00 [place] # 0.8 K/mm3 (0.0-0.8) 02/01/19 15:00 Eos # 0.1 K/mm3 (0.0-0.4) 02/01/19 15:00 Baso # 0.1 K/mm3 (0.0-0.1) 02/01/19 15:00 Seg Neutrophils % 63.7 % (40.0-70.0) 02/01/19 15:00 Seg Neutrophils # 6.9 K/mm3 (1.8-7.7) 02/01/19 15:00 PT 13.6 Sec. (12.2-14.9) 02/01/19 15:33 INR 1.07 (0.87-1.13) 02/01/19 15:33 APTT 30.5 Sec. (24.2-36.6) 02/01/19 15:33 Sodium 146 mmol/L (137-145) H 02/01/19 15:00 Potassium 3.9 mmol/L (3.6-5.0) 02/01/19 15:00 Chloride 107.6 mmol/L (98-107) H 02/01/19 15:00 Carbon Dioxide 24 mmol/L (22-30) 02/01/19 15:00 18 mmol/L 02/01/19 15:00 BUN 12 mg/dL (7-17) 02/01/19 15:00 0.7 mg/dL (0.7-1.2) 02/01/19 15:00 Estimated GFR > 60 ml/min 02/01/19 15:00 17 % 02/01/19 15:00 Glucose 112 mg/dL (65-100) H 02/01/19 15:00 Calcium 10.6 mg/dL (8.4-10.2) H 02/01/19 15:00 Magnesium 2.20 mg/dL (1.7-2.3) 02/01/19 15:00 0.30 mg/dL (0.1-1.2) 02/01/19 15:00 < 0.2 mg/dL (0-0.2) 02/01/19 15:00 0.1 mg/dL 02/01/19 15:00 AST 29 units/L (5-40) 02/01/19 15:00 ALT 32 units/L (7-56) 02/01/19 15:00 96 units/L (35-129) 02/01/19 15:00 < 0.010 ng/mL (0.00-0.029) 02/01/19 15:00 NT-Pro-B Natriuret Pep 102.7 pg/mL (0-900) 02/01/19 15:00 8.3 g/dL (6.3-8.2) H 02/01/19 15:00 4.5 g/dL (3.9-5) 02/01/19 15:00 1.2 % 02/01/19 15:00 TSH 1.870 mlU/mL (0.270-4.200) 02/01/19 15:00 Free T4 1.05 ng/dL (0.76-1.46) 02/01/19 15:00 Colorless (Yellow) 02/01/19 15:00 Clear (Clear) 02/01/19 15:00 7.0 (5.0-7.0) 02/01/19 15:00 Ur Specific [place] 1.001 (1.003-1.030) L 02/01/19 15:00 <15 mg/dl mg/dL (Negative) 02/01/19 15:00 Neg mg/dL (Negative) 02/01/19 15:00 Neg mg/dL (Negative) 02/01/19 15:00 Neg (Negative) 02/01/19 15:00 Neg (Negative) 02/01/19 15:00 Neg (Negative) 02/01/19 15:00 < 2.0 mg/dL (<2.0) 02/01/19 15:00 Ur Leukocyte Esterase Neg (Negative) 02/01/19 15:00 0.0 /HPF (0.0-6.0) 02/01/19 15:00 1.0 /HPF (0.0-6.0) 02/01/19 15:00 - Imaging and Cardiology EKG: report reviewed (SVT) Chest x-ray: report reviewed (no acute findings) Assessment and Plan Advance Directives: Yes (full code) VTE prophylaxis?: Chemical Plan of care discussed with patient/family: Yes - Patient Problems (1) SVT (supraventricular tachycardia) Current Visit: Yes Status: Acute Plan to address problem: Patient initiated on Cardizem drip and to be transitioned to oral Cardizem If necessary amiodarone drip Cardiology consult requested (2) Hypernatremia Current Visit: Yes Status: Acute Plan to address problem: Mild IV half-normal saline (3) Hypertension Current Visit: Yes Status: Chronic Qualifiers: Hypertension type: essential hypertension Qualified Code(s): I10 - Essential (primary) hypertension Plan to address problem: Continue antihypertensives (4) Asthma Current Visit: Yes Status: Chronic Qualifiers: Asthma persistence: unspecified Plan to address problem: Continue Singulair and Flovent (5) GERD (gastroesophageal reflux disease) Current Visit: Yes Status: Chronic Qualifiers: Esophagitis presence: without esophagitis Qualified Code(s): K21.9 - Gastro-esophageal reflux disease without esophagitis Plan to address problem: Continue PPIs (6) DVT prophylaxis Current Visit: Yes Status: Acute Plan to address problem: On Lovenox and GI prophylaxis
[2019-02-01] MEDS ORDERED: DILAUDID IV PRN (22:55)
[2019-02-01] MEDS ORDERED: SODIUM CHLORIDE FLUSH SYRINGE 10 ML IV PRN (22:55)
[2019-02-01] MEDS ORDERED: ZOFRAN IV PRN (22:55)
[2019-02-01] MEDS ORDERED: BROVANA NEBU IH SCH (23:00)
[2019-02-01] MEDS ORDERED: PULMICORT IH SCH (23:00)
[2019-02-01] MEDS ORDERED: NON-FORMULARY (Mometasone/Formoterol [Dulera 200 Mcg/5 Mcg Inhaler] 2 PUFF) IH SCH (23:00)
[2019-02-01] MEDS ORDERED: BUPROPION HCL 200 MG PO SCH (23:00)
[2019-02-01] MEDS: NACL 0.45% 1000 ML 1,000 ML IV SCH (23:28)
[2019-02-01] MEDS: WELLBUTRIN SR PO SCH (23:29)
[2019-02-01] MEDS: MORPHINE IV PRN (23:29)
[2019-02-02] MEDS: CARDIZEM PO SCH ×4 (05:19→22:11)
[2019-02-02 06:37] LABS: Basophils % (Auto) 0.6 % (0.0-1.8); Eosinophils # (Auto) 0.1 K/mm3 (0.0-0.4); Eosinophils % (Auto) 1.5 % (0.0-4.3); Hematocrit 34.5 % (30.3-42.9); Hemoglobin 11.5 gm/dl (10.1-14.3); Lymphocytes # (Auto) 2.6 K/mm3 (1.2-5.4); Lymphocytes % (Auto) 36.4 % (13.4-35.0); Mean Corpuscular HGB Conc 33 % (30-34); Mean Corpuscular Hemoglobin 33 pg (28-32); Mean Corpuscular Volume 100 fl (79-97); Monocytes # (Auto) 0.7 K/mm3 (0.0-0.8); Monocytes % (Auto) 10.1 % (0.0-7.3); Platelet Count 390 K/mm3 (140-440); Red Blood Count 3.47 M/mm3 (3.65-5.03); Red Cell Distribution Width 16.9 % (13.2-15.2)
[2019-02-02 06:59] LABS: Alanine Aminotransferase 20 units/L (7-56); Albumin 3.7 g/dL (3.9-5); BUN/Creatinine Ratio 20; Blood Urea Nitrogen 12 mg/dL (7-17); Calcium 9.4 mg/dL (8.4-10.2); Hemolysis Index 5
[2019-02-02] MEDS: BROVANA NEBU IH SCH ×2 (08:18→20:20)
[2019-02-02] MEDS: PULMICORT IH SCH ×3 (08:18→20:20)
[2019-02-02] MEDS: PEPCID IV SCH ×2 (11:37→22:07)
[2019-02-02] MEDS: WELLBUTRIN SR PO SCH ×2 (11:39→22:07)
[2019-02-02] MEDS: BABY ASPIRIN PO SCH (11:47)
[2019-02-02] MEDS: TYLENOL PO PRN (11:48)
[2019-02-02] MEDS: ZESTRIL PO SCH (11:48)
[2019-02-02] MEDS: SODIUM CHLORIDE FLUSH SYRINGE 10 ML IV SCH ×2 (11:51→22:09)
[2019-02-02] MEDS: HYDREA PO SCH (12:01)
--- NOTE | 2019-02-02 12:02 | Progress Note ---
Assessment and Plan Assessment and plan: --A. fib with rapid ventricular rate Current Visit: Yes Status: Acute Plan to address problem: Patient initiated on Cardizem drip and to be transitioned to oral Cardizem Follow-up cardiology evaluation No new Episodes of SVT -- Hypernatremia Current Visit: Yes Status: Acute Plan to address problem: Mild, IV half-normal saline, resolved -- Hypertension Current Visit: Yes Status: Chronic Qualifiers: Hypertension type: essential hypertension Qualified Code(s): I10 - Essential (primary) hypertension Plan to address problem: Continue antihypertensives, moderate control -- Asthma Current Visit: Yes Status: Chronic Qualifiers: Asthma persistence: unspecified Plan to address problem: Continue Singulair and Flovent -- GERD (gastroesophageal reflux disease) Current Visit: Yes Status: Chronic Qualifiers: Esophagitis presence: without esophagitis Qualified Code(s): K21.9 -GERD without esophagitis Plan to address problem: Continue PPIs -- DVT prophylaxis Current Visit: Yes Status: Acute Plan to address problem: On Lovenox and GI prophylaxis History Interval history: Patient seen and examined this morning medical records reviewed Multiple family members at the bedside Admitted cardiac arrhythmia with rapid ventricular rate Not clear if she had SVT or Afib, , on Cardizem drip Patient feels better denies any chest pain or shortness of breath Denies palpitation Vital signs reviewed Hospitalist Physical - Constitutional Vitals: Temp Pulse Resp BP Pulse Ox 97.9 F 600 H 18 133/62 98 02/02/19 08:03 02/02/19 11:48 02/02/19 08:03 02/02/19 08:03 02/02/19 04:33 General appearance: Present: no acute distress, well-nourished - EENT Eyes: Present: PERRL, EOM intact - Neck Neck: Present: supple, normal ROM - Respiratory Respiratory effort: normal Respiratory: bilateral: diminished, negative: rales, rhonchi, wheezing - Cardiovascular Rhythm: regular Heart Sounds: Present: S1 & S2 - Extremities Extremities: no ischemia, No edema - Abdominal General gastrointestinal: soft, non-tender, non-distended, normal bowel sounds - Integumentary Integumentary: Present: clear, warm - Psychiatric Psychiatric: appropriate mood/affect, cooperative - Neurologic Neurologic: CNII-XII intact, moves all extremities Results - Labs CBC & Chem 7: 02/02/19 05:57 02/02/19 05:57 Labs: Laboratory Last Values WBC 7.2 K/mm3 (4.5-11.0) 02/02/19 05:57 RBC 3.47 M/mm3 (3.65-5.03) L 02/02/19 05:57 Hgb 11.5 gm/dl (10.1-14.3) 02/02/19 05:57 Hct 34.5 % (30.3-42.9) D 02/02/19 05:57 MCV 100 fl (79-97) H 02/02/19 05:57 MCH 33 pg (28-32) H 02/02/19 05:57 MCHC 33 % (30-34) 02/02/19 05:57 RDW 16.9 % (13.2-15.2) H 02/02/19 05:57 Plt Count 390 K/mm3 (140-440) 02/02/19 05:57 Lymph % (Auto) 36.4 % (13.4-35.0) H 02/02/19 05:57 [place] % (Auto) 10.1 % (0.0-7.3) H 02/02/19 05:57 Eos % (Auto) 1.5 % (0.0-4.3) 02/02/19 05:57 Baso % (Auto) 0.6 % (0.0-1.8) 02/02/19 05:57 Lymph # 2.6 K/mm3 (1.2-5.4) 02/02/19 05:57 [place] # 0.7 K/mm3 (0.0-0.8) 02/02/19 05:57 Eos # 0.1 K/mm3 (0.0-0.4) 02/02/19 05:57 Baso # 0.0 K/mm3 (0.0-0.1) 02/02/19 05:57 Seg Neutrophils % 51.4 % (40.0-70.0) 02/02/19 05:57 Seg Neutrophils # 3.7 K/mm3 (1.8-7.7) 02/02/19 05:57 PT 13.6 Sec. (12.2-14.9) 02/01/19 15:33 INR 1.07 (0.87-1.13) 02/01/19 15:33 APTT 30.5 Sec. (24.2-36.6) 02/01/19 15:33 Sodium 141 mmol/L (137-145) 02/02/19 05:57 Potassium 3.5 mmol/L (3.6-5.0) L 02/02/19 05:57 Chloride 106.8 mmol/L (98-107) 02/02/19 05:57 Carbon Dioxide 22 mmol/L (22-30) 02/02/19 05:57 16 mmol/L 02/02/19 05:57 BUN 12 mg/dL (7-17) 02/02/19 05:57 0.6 mg/dL (0.7-1.2) L 02/02/19 05:57 Estimated GFR > 60 ml/min 02/02/19 05:57 20 % 02/02/19 05:57 Glucose 101 mg/dL (65-100) H 02/02/19 05:57 5.1 % (4-6) 02/01/19 23:17 Calcium 9.4 mg/dL (8.4-10.2) 02/02/19 05:57 Magnesium 2.20 mg/dL (1.7-2.3) 02/01/19 15:00 0.20 mg/dL (0.1-1.2) 02/02/19 05:57 < 0.2 mg/dL (0-0.2) 02/01/19 15:00 0.1 mg/dL 02/01/19 15:00 AST 15 units/L (5-40) 02/02/19 05:57 ALT 20 units/L (7-56) 02/02/19 05:57 67 units/L (35-129) 02/02/19 05:57 < 0.010 ng/mL (0.00-0.029) 02/01/19 15:00 NT-Pro-B Natriuret Pep 102.7 pg/mL (0-900) 02/01/19 15:00 6.7 g/dL (6.3-8.2) 02/02/19 05:57 3.7 g/dL (3.9-5) L 02/02/19 05:57 1.2 % 02/02/19 05:57 TSH 1.870 mlU/mL (0.270-4.200) 02/01/19 15:00 Free T4 1.05 ng/dL (0.76-1.46) 02/01/19 15:00 Colorless (Yellow) 02/01/19 15:00 Clear (Clear) 02/01/19 15:00 7.0 (5.0-7.0) 02/01/19 15:00 Ur Specific [place] 1.001 (1.003-1.030) L 02/01/19 15:00 <15 mg/dl mg/dL (Negative) 02/01/19 15:00 Neg mg/dL (Negative) 02/01/19 15:00 Neg mg/dL (Negative) 02/01/19 15:00 Neg (Negative) 02/01/19 15:00 Neg (Negative) 02/01/19 15:00 Neg (Negative) 02/01/19 15:00 < 2.0 mg/dL (<2.0) 02/01/19 15:00 Ur Leukocyte Esterase Neg (Negative) 02/01/19 15:00 0.0 /HPF (0.0-6.0) 02/01/19 15:00 1.0 /HPF (0.0-6.0) 02/01/19 15:00 Active Medications - Current Medications Current Medications: Generic Name Dose Route Start Last Admin Trade Name Freq PRN Reason Stop Dose Admin Acetaminophen 650 mg 02/01/19 22:55 02/02/19 11:48 Tylenol PO 650 mg Q4H PRN Administration Pain MILD(1-3)/Fever >100.5/ABDUL Arformoterol Tartrate 15 mcg 02/02/19 08:00 02/02/19 08:18 Brovana Nebu IH 15 mcg Q12HRT ZARI Administration Aspirin 81 mg 02/02/19 10:00 02/02/19 11:47 Baby Aspirin PO 81 mg QDAY ZARI Administration Budesonide 1 mg 02/02/19 08:00 02/02/19 08:24 Pulmicort IH 1 mg Q12HRT ZARI Administration Bupropion HCl 200 mg 02/01/19 23:00 02/02/19 11:39 Wellbutrin Sr PO 200 mg BID ZARI Administration Diltiazem HCl 60 mg 02/01/19 20:00 02/02/19 11:42 Cardizem PO 60 mg Q6HR ZARI Administration Enoxaparin Sodium 40 mg 02/02/19 22:00 Lovenox SUB-Q QDAY@2200 ZARI Famotidine 20 mg 02/02/19 10:00 02/02/19 11:37 Pepcid IV 20 mg BID ZARI Administration Hydromorphone HCl 0.5 mg 02/01/19 22:55 Dilaudid IV Q3H PRN Pain , Severe (7-10) Hydroxyurea 500 mg 02/02/19 10:00 Hydrea PO QDAY ZARI Diltiazem HCl 100 mg in 100 mls @ 5 mls/hr 02/01/19 15:30 02/01/19 16:17 Cardizem/D5w 100mg/100ml IV 5 mg/hr TITR ZARI 5 mls/hr Administration Protocol 5 MG/HR Sodium Chloride 1,000 mls @ 75 mls/hr 02/01/19 23:00 02/01/19 23:28 Nacl 0.45% 1000 Ml IV 75 mls/hr DIRECT ZARI Administration Lisinopril 40 mg 02/02/19 10:00 02/02/19 11:48 Zestril PO 40 mg QDAY ZARI Administration Morphine Sulfate 2 mg 02/01/19 21:59 02/01/19 23:29 Morphine IV 2 mg Q4H PRN Administration Pain, Moderate (4-6) Nitroglycerin 0.4 mg 02/01/19 21:59 02/01/19 22:10 Nitrostat SL 0.4 mg .Q5MIN PRN Administration Chest Pain Ondansetron HCl 4 mg 02/01/19 22:55 Zofran IV Q8H PRN Nausea And Vomiting Sodium Chloride 10 ml 02/02/19 10:00 02/02/19 11:51 Sodium Chloride Flush Syringe 10 Ml IV 10 ml BID ZARI Administration Sodium Chloride 10 ml 02/01/19 22:55 Sodium Chloride Flush Syringe 10 Ml IV PRN PRN LINE FLUSH
[2019-02-02] MEDS: NACL 0.45% 1000 ML 1,000 ML IV SCH (12:14)
[2019-02-02] MEDS ORDERED: K-DUR PO ONE (13:00)
--- NOTE | 2019-02-02 13:24 | Consultation ---
History of Present Illness Consult date: 02/02/19 Requesting physician: DIANE DOLAN Consult reason: chest pain History of present illness: Tjhe patient clamis that she developed substernal chest pressure and palpitations after lifting a pack of water at the store yesterday. While having symptoms, she drove herself home. Her daughter then drove her to the ER. She als o experienced diaphoresis. Although ER notes documented rapid AF, no rhythm strips or ECG of AF are available. Past History Past Medical History: hypertension, other (Asthma, Hep C) Past Surgical History: hysterectomy Social history: , smoking Family history: CAD Medications and Allergies Allergies Allergy/AdvReac Type Severity Reaction Status Date / Time amoxicillin Allergy Itching Verified 06/28/18 13:29 codeine Allergy GASTRIC Verified 06/28/18 13:29 IRRITATION aspirin AdvReac Nausea,GASTRIC Verified 06/28/18 13:29 IRRITATION Home Medications Medication Instructions Recorded Confirmed Last Taken Type Aspirin [Aspirin BABY CHEW TAB] 81 mg PO QDAY 02/01/19 02/01/19 Unknown History Hydroxyurea [Hydrea] 500 mg PO QDAY 02/01/19 02/01/19 Unknown History Lisinopril [Zestril TAB] 40 mg PO QDAY 02/01/19 02/01/19 Unknown History Mometasone/Formoterol [Dulera 200 2 puff IH BID 02/01/19 02/01/19 Unknown History Mcg/5 Mcg Inhaler] buPROPion HCl [Wellbutrin SR] 200 mg PO BID 02/01/19 02/01/19 Unknown History Active Meds: Active Medications Acetaminophen (Tylenol) 650 mg PO Q4H PRN PRN Reason: Pain MILD(1-3)/Fever >100.5/ABDUL Last Admin: 02/02/19 11:48 Dose: 650 mg Documented by: Arformoterol Tartrate (Brovana Nebu) 15 mcg IH Q12HRT [facility] Last Admin: 02/02/19 08:18 Dose: 15 mcg Documented by: Aspirin (Baby Aspirin) 81 mg PO QDAY [facility] Last Admin: 02/02/19 11:47 Dose: 81 mg Documented by: Budesonide (Pulmicort) 1 mg IH Q12HRT [facility] Last Admin: 02/02/19 08:24 Dose: 1 mg Documented by: Bupropion HCl (Wellbutrin Sr) 200 mg PO BID [facility] Last Admin: 02/02/19 11:39 Dose: 200 mg Documented by: Diltiazem HCl (Cardizem) 60 mg PO Q6HR [facility] Last Admin: 02/02/19 11:42 Dose: 60 mg Documented by: Enoxaparin Sodium (Lovenox) 40 mg SUB-Q QDAY@2200 [facility] Famotidine (Pepcid) 20 mg IV BID [facility] Last Admin: 02/02/19 11:37 Dose: 20 mg Documented by: Hydromorphone HCl (Dilaudid) 0.5 mg IV Q3H PRN PRN Reason: Pain , Severe (7-10) Hydroxyurea (Hydrea) 500 mg PO QDAY [facility] Last Admin: 02/02/19 12:01 Dose: 500 mg Documented by: Sodium Chloride (Nacl 0.45% 1000 Ml) 1,000 mls @ 75 mls/hr IV DIRECT [facility] Last Admin: 02/02/19 12:14 Dose: 75 mls/hr Documented by: Lisinopril (Zestril) 40 mg PO QDAY [facility] Last Admin: 02/02/19 11:48 Dose: 40 mg Documented by: Morphine Sulfate (Morphine) 2 mg IV Q4H PRN PRN Reason: Pain, Moderate (4-6) Last Admin: 02/01/19 23:29 Dose: 2 mg Documented by: Nitroglycerin (Nitrostat) 0.4 mg SL .Q5MIN PRN PRN Reason: Chest Pain Last Admin: 02/01/19 22:10 Dose: 0.4 mg Documented by: Ondansetron HCl (Zofran) 4 mg IV Q8H PRN PRN Reason: Nausea And Vomiting Sodium Chloride (Sodium Chloride Flush Syringe 10 Ml) 10 ml IV BID [facility] Last Admin: 02/02/19 11:51 Dose: 10 ml Documented by: Sodium Chloride (Sodium Chloride Flush Syringe 10 Ml) 10 ml IV PRN PRN PRN Reason: LINE FLUSH Review of Systems Constitutional: no fever, no chills Ears, nose, mouth and throat: no ear pain, no ear discharge, no sore throat Cardiovascular: chest pain, no lightheadedness, no shortness of breath Respiratory: no cough, no hemoptysis, no shortness of breath Gastrointestinal: no abdominal pain, no nausea, no vomiting, no diarrhea, no constipation Genitourinary Female: no dysuria, no urinary frequency Rectal: no pain, no bleeding Musculoskeletal: no neck stiffness, no neck pain, no myalgias Neurological: no weakness, no parathesias, no numbness, no tingling, no headaches Endocrine: no cold intolerance, no heat intolerance Hematologic/Lymphatic: no easy bruising, no easy bleeding Allergic/Immunologic: no urticaria, no angioedema Physical Examination Vital Signs Last Vital Signs Temp 97.9 F 02/02/19 08:03 Pulse 600 H 02/02/19 11:48 Resp 18 02/02/19 08:03 BP 133/62 02/02/19 08:03 Pulse Ox 98 02/02/19 04:33 General appearance: no acute distress HEENT: Positive: EOMI, Normocephaly, Mucus Membranes Moist Neck: Positive: neck supple, trachea midline Cardiac: Positive: Reg Rate and Rhythm, S1/S2 Lungs: Positive: clear to auscultation Neuro: Positive: Grossly Intact Abdomen: Positive: Soft, Active Bowel Sounds. Negative: Tender Skin: Positive: Clear. Negative: Rash Musculoskeletal: Normal Range of Motion Extremities: Present: normal. Absent: edema Results 02/02/19 05:57 02/02/19 05:57 Cardiac Enzymes 02/01/19 02/02/19 Range/Units 15:00 05:57 AST 29 15 (5-40) units/L Coagulation 02/01/19 Range/Units 15:33 PT 13.6 (12.2-14.9) Sec. INR 1.07 (0.87-1.13) APTT 30.5 (24.2-36.6) Sec. CBC 02/01/19 02/02/19 Range/Units 15:00 05:57 WBC 10.8 7.2 (4.5-11.0) K/mm3 RBC 4.19 3.47 L (3.65-5.03) M/mm3 Hgb 13.7 11.5 (10.1-14.3) gm/dl Hct 41.6 34.5 D (30.3-42.9) % Plt Count 513 H 390 (140-440) K/mm3 Lymph # 2.9 2.6 (1.2-5.4) K/mm3 [place] # 0.8 0.7 (0.0-0.8) K/mm3 Eos # 0.1 0.1 (0.0-0.4) K/mm3 Baso # 0.1 0.0 (0.0-0.1) K/mm3 Comprehensive Metabolic Panel 02/01/19 02/01/19 02/02/19 Range/Units 15:00 15:00 05:57 Sodium 146 H 141 (137-145) mmol/L Potassium 3.9 3.5 L (3.6-5.0) mmol/L Chloride 107.6 H 106.8 (98-107) mmol/L Carbon Dioxide 24 22 (22-30) mmol/L BUN 12 12 (7-17) mg/dL Creatinine 0.7 0.6 L (0.7-1.2) mg/dL Glucose 112 H 101 H (65-100) mg/dL Calcium 10.6 H 9.4 (8.4-10.2) mg/dL Direct Bilirubin < 0.2 (0-0.2) mg/dL Indirect Bilirubin 0.1 mg/dL AST 29 15 (5-40) units/L ALT 32 20 (7-56) units/L Alkaline Phosphatase 96 67 (35-129) units/L Total Protein 8.3 H 6.7 (6.3-8.2) g/dL Albumin 4.5 3.7 L (3.9-5) g/dL - Imaging and Cardiology EKG: pending Assessment and Plan Agree with current regimen. ? rapid AF - no concrete evidence at this point. Obtain echo. Lexiscan stress MPI in am. - Patient Problems (1) Chest pain Current Visit: Yes Status: Acute (2) Atrial fibrillation with RVR Current Visit: Yes Status: Suspected (3) Hypertension Current Visit: Yes Status: Acute (4) Asthma Current Visit: Yes Status: Chronic Qualifiers: Asthma persistence: unspecified
[2019-02-02] MEDS: LOVENOX SUB-Q SCH (22:07)
[2019-02-03] MEDS: NACL 0.45% 1000 ML 1,000 ML IV SCH ×2 (00:42→22:04)
[2019-02-03] MEDS: CARDIZEM PO SCH ×3 (05:51→22:05)
[2019-02-03] MEDS ORDERED: LEXISCAN IV ONE ×2 (07:10→12:34)
[2019-02-03] MEDS: PULMICORT IH SCH ×2 (07:43→21:42)
[2019-02-03] MEDS: BROVANA NEBU IH SCH ×2 (07:43→21:42)
--- NOTE | 2019-02-03 14:07 | Progress Note ---
Assessment and Plan Echo reviewed - EF 55-60%, mild LVH, mild to mod MR, mild TR, borderline pulm HTN with RVSP 35mmHg. Tele reviewed - in SR with SB noted overnight, HR low 48bpm, no AFib noted overnight. S/p lexiscan MPI stress test this AM which showed TID, normal EF. Coronary angiography recommended for definitive diagnosis. Indications, potential risks and benefits of LHC reviewed with pt and she is agreeable to proceed in AM. NPO after MN. The patient has been seen in conjunction with Dr. Siddiqui who agrees with the assessment and plan of care. - Patient Problems (1) Chest pain Current Visit: Yes Status: Acute (2) Atrial fibrillation with RVR Current Visit: Yes Status: Suspected (3) Abnormal stress test Current Visit: Yes Status: Acute (4) Hypertension Current Visit: Yes Status: Acute (5) Asthma Current Visit: Yes Status: Chronic Qualifiers: Asthma persistence: unspecified Subjective Date of service: 02/03/19 Principal diagnosis: cp Interval history: pt for stress test, no current complaints. tele reviewed - in SR with SB noted overnight, HR low 48bpm, no AFib noted overnight. Objective Last Vital Signs Temp 98.2 F 02/03/19 07:35 Pulse 92 H 02/03/19 07:43 Resp 20 02/03/19 07:43 BP 171/85 02/03/19 12:39 Pulse Ox 98 02/03/19 07:35 - Physical Examination General: No Apparent Distress HEENT: Positive: EOMI, Normocephaly, Mucus Membranes Moist Neck: Positive: neck supple, trachea midline Cardiac: Positive: Reg Rate and Rhythm, S1/S2 Lungs: Positive: Decreased Breath Sounds Neuro: Positive: Grossly Intact Abdomen: Positive: Soft, Active Bowel Sounds. Negative: Tender Skin: Positive: Clear. Negative: Rash Musculoskeletal: Normal Range of Motion Extremities: Present: normal. Absent: edema - Imaging and Cardiology EKG: pending
[2019-02-03] MEDS ORDERED: NACL 0.9% 500 ML 500 ML IV SCH (16:00)
--- NOTE | 2019-02-03 17:43 | Progress Note ---
Assessment and Plan Assessment and plan: --Abnormal stress test today; Continue current cardiac medications, possible heart cath tomorrow Cardiology following --A. fib with rapid ventricular rate Current Visit: Yes Status: Acute Plan to address problem: s/p Cardizem drip ,now on oral cardizem transitioned to oral Cardizem, Now sinus rhythm, Defer need for anticoagulation to cardiology -- Hypernatremia; salt Current Visit: Yes Status: Acute Plan to address problem: Closely monitor -- Hypertension Current Visit: Yes Status: Chronic Plan to address problem: Continue antihypertensives, moderate control -- Asthma Current Visit: Yes Status: Chronic Continue Singulair and Flovent, oxygen as needed -- GERD (gastroesophageal reflux disease) Current Visit: Yes Status: Chronic Continue PPIs -- DVT prophylaxis Current Visit: Yes Status: Acute Plan to address problem: On Lovenox and GI prophylaxis Monitor closely and adjust management as needed Disposition; follow heart cath tomorrow And discharged when stable History Interval history: Patient seen and examined medical records reviewed Underwent stress test today No new complaints, vital signs noted Hospitalist Physical - Constitutional Vitals: Temp Pulse Resp BP Pulse Ox 98.2 F 92 H 20 171/85 98 02/03/19 07:35 02/03/19 07:43 02/03/19 07:43 02/03/19 12:39 02/03/19 07:35 General appearance: Present: no acute distress, well-nourished - EENT Eyes: Present: PERRL, EOM intact - Neck Neck: Present: supple, normal ROM - Respiratory Respiratory effort: normal Respiratory: bilateral: diminished, negative: rales, rhonchi, wheezing - Cardiovascular Rhythm: regular Heart Sounds: Present: S1 & S2 - Extremities Extremities: no ischemia, No edema - Abdominal General gastrointestinal: soft, non-tender, non-distended, normal bowel sounds - Integumentary Integumentary: Present: clear, warm - Psychiatric Psychiatric: appropriate mood/affect, cooperative - Neurologic Neurologic: CNII-XII intact, moves all extremities Results - Labs CBC & Chem 7: 02/02/19 05:57 02/02/19 05:57 Labs: Laboratory Last Values WBC 7.2 K/mm3 (4.5-11.0) 02/02/19 05:57 RBC 3.47 M/mm3 (3.65-5.03) L 02/02/19 05:57 Hgb 11.5 gm/dl (10.1-14.3) 02/02/19 05:57 Hct 34.5 % (30.3-42.9) D 02/02/19 05:57 MCV 100 fl (79-97) H 02/02/19 05:57 MCH 33 pg (28-32) H 02/02/19 05:57 MCHC 33 % (30-34) 02/02/19 05:57 RDW 16.9 % (13.2-15.2) H 02/02/19 05:57 Plt Count 390 K/mm3 (140-440) 02/02/19 05:57 Lymph % (Auto) 36.4 % (13.4-35.0) H 02/02/19 05:57 [place] % (Auto) 10.1 % (0.0-7.3) H 02/02/19 05:57 Eos % (Auto) 1.5 % (0.0-4.3) 02/02/19 05:57 Baso % (Auto) 0.6 % (0.0-1.8) 02/02/19 05:57 Lymph # 2.6 K/mm3 (1.2-5.4) 02/02/19 05:57 [place] # 0.7 K/mm3 (0.0-0.8) 02/02/19 05:57 Eos # 0.1 K/mm3 (0.0-0.4) 02/02/19 05:57 Baso # 0.0 K/mm3 (0.0-0.1) 02/02/19 05:57 Seg Neutrophils % 51.4 % (40.0-70.0) 02/02/19 05:57 Seg Neutrophils # 3.7 K/mm3 (1.8-7.7) 02/02/19 05:57 PT 13.6 Sec. (12.2-14.9) 02/01/19 15:33 INR 1.07 (0.87-1.13) 02/01/19 15:33 APTT 30.5 Sec. (24.2-36.6) 02/01/19 15:33 Sodium 141 mmol/L (137-145) 02/02/19 05:57 Potassium 3.5 mmol/L (3.6-5.0) L 02/02/19 05:57 Chloride 106.8 mmol/L (98-107) 02/02/19 05:57 Carbon Dioxide 22 mmol/L (22-30) 02/02/19 05:57 16 mmol/L 02/02/19 05:57 BUN 12 mg/dL (7-17) 02/02/19 05:57 0.6 mg/dL (0.7-1.2) L 02/02/19 05:57 Estimated GFR > 60 ml/min 02/02/19 05:57 20 % 02/02/19 05:57 Glucose 101 mg/dL (65-100) H 02/02/19 05:57 5.1 % (4-6) 02/01/19 23:17 Calcium 9.4 mg/dL (8.4-10.2) 02/02/19 05:57 Magnesium 2.20 mg/dL (1.7-2.3) 02/01/19 15:00 0.20 mg/dL (0.1-1.2) 02/02/19 05:57 < 0.2 mg/dL (0-0.2) 02/01/19 15:00 0.1 mg/dL 02/01/19 15:00 AST 15 units/L (5-40) 02/02/19 05:57 ALT 20 units/L (7-56) 02/02/19 05:57 67 units/L (35-129) 02/02/19 05:57 < 0.010 ng/mL (0.00-0.029) 02/02/19 16:59 NT-Pro-B Natriuret Pep 102.7 pg/mL (0-900) 02/01/19 15:00 6.7 g/dL (6.3-8.2) 02/02/19 05:57 3.7 g/dL (3.9-5) L 02/02/19 05:57 1.2 % 02/02/19 05:57 TSH 1.870 mlU/mL (0.270-4.200) 02/01/19 15:00 Free T4 1.05 ng/dL (0.76-1.46) 02/01/19 15:00 Colorless (Yellow) 02/01/19 15:00 Clear (Clear) 02/01/19 15:00 7.0 (5.0-7.0) 02/01/19 15:00 Ur Specific [place] 1.001 (1.003-1.030) L 02/01/19 15:00 <15 mg/dl mg/dL (Negative) 02/01/19 15:00 Neg mg/dL (Negative) 02/01/19 15:00 Neg mg/dL (Negative) 02/01/19 15:00 Neg (Negative) 02/01/19 15:00 Neg (Negative) 02/01/19 15:00 Neg (Negative) 02/01/19 15:00 < 2.0 mg/dL (<2.0) 02/01/19 15:00 Ur Leukocyte Esterase Neg (Negative) 02/01/19 15:00 0.0 /HPF (0.0-6.0) 02/01/19 15:00 1.0 /HPF (0.0-6.0) 02/01/19 15:00 Active Medications - Current Medications Current Medications: Generic Name Dose Route Start Last Admin Trade Name Freq PRN Reason Stop Dose Admin Acetaminophen 650 mg 02/01/19 22:55 02/02/19 11:48 Tylenol PO 650 mg Q4H PRN Administration Pain MILD(1-3)/Fever >100.5/ABDUL Arformoterol Tartrate 15 mcg 02/02/19 08:00 02/03/19 07:43 Brovana Nebu IH 15 mcg Q12HRT ZARI Administration Aspirin 325 mg 02/04/19 10:00 Aspirin PO QDAY ZARI Budesonide 0.5 mg 02/02/19 17:59 02/03/19 07:43 Pulmicort IH 0.5 mg Q12HRT ZARI Administration Bupropion HCl 200 mg 02/01/19 23:00 02/02/19 22:07 Wellbutrin Sr PO 200 mg BID ZARI Administration Diltiazem HCl 60 mg 02/02/19 14:00 02/03/19 05:51 Cardizem PO Not Given Q8H ZARI Enoxaparin Sodium 40 mg 02/02/19 22:00 02/02/19 22:07 Lovenox SUB-Q 40 mg QDAY@2200 ZARI Administration Famotidine 20 mg 02/03/19 22:00 Pepcid PO BID ZARI Hydromorphone HCl 0.5 mg 02/01/19 22:55 Dilaudid IV Q3H PRN Pain , Severe (7-10) Hydroxyurea 500 mg 02/02/19 10:00 02/02/19 12:01 Hydrea PO 500 mg QDAY ZARI Administration Sodium Chloride 1,000 mls @ 75 mls/hr 02/01/19 23:00 02/03/19 00:42 Nacl 0.45% 1000 Ml IV 75 mls/hr DIRECT ZARI Administration Sodium Chloride 500 mls @ 50 mls/hr 02/03/19 16:00 Nacl 0.9% 500 Ml IV 02/04/19 01:59 DIRECT ZARI Lisinopril 40 mg 02/02/19 10:00 02/02/19 11:48 Zestril PO 40 mg QDAY ZARI Administration Morphine Sulfate 2 mg 02/01/19 21:59 02/01/19 23:29 Morphine IV 2 mg Q4H PRN Administration Pain, Moderate (4-6) Nitroglycerin 0.4 mg 02/01/19 21:59 02/01/19 22:10 Nitrostat SL 0.4 mg .Q5MIN PRN Administration Chest Pain Ondansetron HCl 4 mg 02/01/19 22:55 Zofran IV Q8H PRN Nausea And Vomiting Sodium Chloride 10 ml 02/02/19 10:00 02/02/19 22:09 Sodium Chloride Flush Syringe 10 Ml IV 10 ml BID ZARI Administration Sodium Chloride 10 ml 02/01/19 22:55 Sodium Chloride Flush Syringe 10 Ml IV PRN PRN LINE FLUSH Nutrition/Malnutrition Assess - Dietary Evaluation Nutrition/Malnutrition Findings: Nutrition Notes Start: 02/03/19 14:09 Freq: Status: Active Protocol: Document 02/03/19 14:09 MARIELA (Rec: 02/03/19 14:11 MARIELA SRW- [email or web address]) Nutrition Notes Need for Assessment generated from: environmental services lead,MST Initial or Follow up Brief Note Current Diagnosis Hypertension Other Pertinent Diagnosis SVT, GERD, Asthma Current Diet Cardiac Labs/Tests Reviewed Pertinent Medications Reviewed Height 5 ft 8 in Weight 65 kg [place] Body Weight (kg) 63.63 BMI 21.7 Subjective/Other Information Pt screened for malnutrition risk (wt loss, poor appetite). She is not in the room at time of visit (12:47). Burn Absent Trauma Absent Is patient on ventilator? No Is Patient Ambulatory and/or Out of Bed Yes REE-([facility]-ambulatory/OOB) [ 1558.050 [id number]] Calculation Used for Recommendations [facility] Additional Notes Pro needs 1-1.2g/k-78g/ day Fluid needs 1ml/kcal Nutrition Intervention Follow-Up By: 02/04/19 Additional Comments F/U: intakes, MST assessment, need for ONS
[2019-02-03] MEDS: WELLBUTRIN SR PO SCH ×2 (19:03→22:05)
[2019-02-03] MEDS: HYDREA PO SCH (19:06)
[2019-02-03] MEDS: SODIUM CHLORIDE FLUSH SYRINGE 10 ML IV SCH ×2 (19:06→22:07)
[2019-02-03] MEDS: ZESTRIL PO SCH (19:07)
[2019-02-03] MEDS: BABY ASPIRIN PO SCH (21:54)
[2019-02-03] MEDS: PEPCID IV SCH (21:55)
[2019-02-03] MEDS: PEPCID PO SCH (22:05)
[2019-02-03] MEDS: LOVENOX SUB-Q SCH (22:06)
--- NOTE | 2019-02-04 02:21 | Treadmill Report ---
SINGLE ISOTOPE DUAL STUDY MYOCARDIAL PERFUSION SCAN REFERRING PHYSICIAN: Dr. Yulissa Redd, hospitalist. SEEN BY: Dr. Jesika RobertsonEllazmia. DESCRIPTION OF PROCEDURE: The patient received 10 mCi of technetium 99m Myoview intravenously under resting conditions. Resting myocardial perfusion scan was done. Subsequently, the patient underwent Lexiscan stress test as per the protocol. During Lexiscan stress test, the patient received 28 mCi of technetium 99m Myoview intravenously. After 30-60 minutes, post stress images were done. Computerized reconstruction images were performed for analysis. Post-stress images revealed transient ischemic dilatation of the left ventricle with a TID ratio of 1.32. A small mild apical perfusion defect was seen. Gated study did not reveal any wall motion abnormality. Left ventricular ejection fraction was normal and was calculated to be 63%. The resting images revealed reversibility of the perfusion defect seen in the stress images. CONCLUSIONS: 1. Transient ischemic dilatation of the left ventricle with TID ratio of 1.32, which could indicate severe underlying coronary artery disease. 2. Small mild reversible apical perfusion defect. 3. No wall motion abnormality. 4. Normal left ventricular ejection fraction of 63%. JOB# [id number] [facility]/NT[facility]
[2019-02-04 05:32] LABS: Basophils # (Auto) 0.1 K/mm3 (0.0-0.1); Basophils % (Auto) 1.1 % (0.0-1.8); Eosinophils # (Auto) 0.1 K/mm3 (0.0-0.4); Eosinophils % (Auto) 1.4 % (0.0-4.3); Hematocrit 35.6 % (30.3-42.9); Hemoglobin 11.7 gm/dl (10.1-14.3); Lymphocytes # (Auto) 2.4 K/mm3 (1.2-5.4); Lymphocytes % (Auto) 33.7 % (13.4-35.0); Mean Corpuscular HGB Conc 33 % (30-34); Mean Corpuscular Hemoglobin 33 pg (28-32); Mean Corpuscular Volume 100 fl (79-97); Monocytes # (Auto) 0.7 K/mm3 (0.0-0.8); Monocytes % (Auto) 9.2 % (0.0-7.3); Platelet Count 419 K/mm3 (140-440); Red Blood Count 3.57 M/mm3 (3.65-5.03)
[2019-02-04 05:46] LABS: BUN/Creatinine Ratio 17; Blood Urea Nitrogen 12 mg/dL (7-17); Calcium 10.3 mg/dL (8.4-10.2); Hemolysis Index 5
[2019-02-04 05:49] LABS: INR 1.1 (0.87-1.13)
[2019-02-04] MEDS: CARDIZEM PO SCH ×2 (07:27→15:42)
[2019-02-04] MEDS: PULMICORT IH SCH (08:09)
[2019-02-04] MEDS: BROVANA NEBU IH SCH (08:09)
[2019-02-04] MEDS: TYLENOL PO PRN (09:56)
[2019-02-04] MEDS: WELLBUTRIN SR PO SCH (09:58)
[2019-02-04] MEDS: ZESTRIL PO SCH (09:59)
[2019-02-04] MEDS: HYDREA PO SCH (09:59)
[2019-02-04] MEDS ORDERED: ASPIRIN PO SCH (10:00)
[2019-02-04] MEDS: SODIUM CHLORIDE FLUSH SYRINGE 10 ML IV SCH (10:00)
[2019-02-04] MEDS: PEPCID PO SCH (10:00)
[2019-02-04] MEDS ORDERED: HEPARIN/NS 5000 UNIT/500ML(CATH LAB) 1,000 ML IR ONE (10:33)
[2019-02-04] MEDS ORDERED: CALAN ONE (10:33)
[2019-02-04] MEDS ORDERED: HEPARIN 10,000 UNITS/10 ML ONE (10:33)
[2019-02-04] MEDS ORDERED: NITROGLYCERIN SYRINGE 0 ML ONE (10:34)
[2019-02-04] MEDS ORDERED: XYLOCAINE 2% INFILTRATI ONE (10:34)
[2019-02-04] MEDS ORDERED: VERSED ONE (10:42)
[2019-02-04] MEDS ORDERED: SUBLIMAZE ONE (10:42)
--- NOTE | 2019-02-04 12:10 | Cardiac Catherization Report ---
INDICATION FOR PROCEDURE: This patient is a 73-year-old female with a history of asthma and hepatitis C, was admitted with chest pain and was noted to have abnormal stress nuclear myocardial perfusion imaging, hence scheduled for cardiac catheterization. The patient was explained of the procedure, alternatives of therapy available and was explained of the potential complications of [place], CVA, cardiac arrhythmia, dye allergy, vascular complications, and even . The patient is willing to proceed with cardiac catheterization for definitive diagnosis and treatment. DESCRIPTION OF PROCEDURE: The patient was brought to the catheterization laboratory in a fasting condition. Right groin area was thoroughly cleansed with Betadine solution. Sterile drapes were applied. The patient was evaluated for moderate sedation and was noted to be appropriate candidate for moderate sedation. The patient was sedated with IV Versed and fentanyl. Subsequently, local anesthesia was given in the right groin and right femoral artery puncture was made using 21-gauge arterial puncture needle. Subsequently, 5-Malaysian sheath was introduced. A 5-Malaysian multipurpose catheter was used to obtain the left ventriculogram done in [place]VAR[place]O and ARMENIAN projection using hand injection and subsequently a left coronary angiography was performed using the same catheter. JR4 catheter was used to obtain the angiograms of the right coronary artery. At the end of the procedure, catheter and sheath were removed. Good hemostasis was achieved with manual pressure and pressure bandage. No untoward complications were noted. No hematoma noted in the right groin. The patient tolerated the moderate sedation well. The patient was monitored throughout the procedure with EKG monitoring, pulse oximetry, and hemodynamic monitoring. At the end of the procedure, the patient was noted to be breathing normally, moving all the extremities and communicating normally. No untoward effects were noted from moderate sedation. Moderate sedation was started at 11:03 a.m. and ended at 11:25 a.m. The patient was transferred to the room in stable condition. No side effects were noted. Following findings were noted. HEMODYNAMICS: 1. Opening aortic pressure 170/71. Left ventricular pressure 170/14. No gradient across the aortic valve. Estimated ejection fraction 50-55%. 2. Left angiogram done in ALVARADO and ARMENIAN projection using hand injection showed normal size left ventricle with normal contractility. Mitral regurgitation could not be evaluated because of limited amount of dye injected. 3. Right coronary artery dominant vessel arises normally from right coronary cusp, angiographically smooth and normal. 4. Left coronary artery arises normally from left coronary cusp. Left main is very short, immediately dividing into LAD and circumflex. LAD and its branches and circumflex artery and its branch are angiographically smooth and normal. FINAL IMPRESSION: 1. Normal sized left ventricle with normal contractility. End-diastolic pressure is upper limits of normal. 2. Normal coronary anatomy with RCA being the dominant vessel. 3. Right femoral artery was used for access and good hemostasis was achieved with manual pressure. The patient had no hematoma at the end of the procedure. The patient at this time will be continued on risk factor modification. JOB# [id number] [facility]/MEI
--- NOTE | 2019-02-04 13:07 | Progress Note ---
Assessment and Plan S/p C today which showed normal coronaries. Currently stable cardiac status. Pt may discharge home from cardiology standpoint following completion of post-cath order set. At discharge, cont current cardiac regimen. Will not initiate systemic AC at this time in regards to AFib due to transient duration of AFib with no reoccurrence noted since admission. Recommend follow up in our office with Dr. Farrell within 1-2 weeks of hospital discharge ([phone]). The patient has been seen in conjunction with Dr. Siddiqui who agrees with the assessment and plan of care. - Patient Problems (1) Chest pain Current Visit: Yes Status: Resolved (2) Atrial fibrillation with RVR Current Visit: Yes Status: Suspected (3) Abnormal stress test Current Visit: Yes Status: Acute (4) Hypertension Current Visit: Yes Status: Acute (5) Asthma Current Visit: Yes Status: Chronic Qualifiers: Asthma persistence: unspecified Subjective Date of service: 02/04/19 Principal diagnosis: cp Interval history: pt for [facility], no current complaints. tele reviewed - in SR overnight, no acute events. Objective Last Vital Signs Temp 97.9 F 02/04/19 12:03 Pulse 79 02/04/19 12:24 Resp 14 02/04/19 12:03 BP 141/70 02/04/19 12:03 Pulse Ox 97 02/04/19 12:03 - Physical Examination General: No Apparent Distress HEENT: Positive: EOMI, Normocephaly, Mucus Membranes Moist Neck: Positive: neck supple, trachea midline Cardiac: Positive: Reg Rate and Rhythm, S1/S2 Lungs: Positive: Decreased Breath Sounds Neuro: Positive: Grossly Intact Abdomen: Positive: Soft, Active Bowel Sounds. Negative: Tender Skin: Positive: Clear. Negative: Rash Musculoskeletal: Normal Range of Motion Extremities: Present: normal. Absent: edema - Labs and Meds Coagulation 02/04/19 Range/Units 04:37 PT 13.9 (12.2-14.9) Sec. INR 1.10 (0.87-1.13) CBC 02/04/19 Range/Units 04:37 WBC 7.2 (4.5-11.0) K/mm3 RBC 3.57 L (3.65-5.03) M/mm3 Hgb 11.7 (10.1-14.3) gm/dl Hct 35.6 (30.3-42.9) % Plt Count 419 (140-440) K/mm3 Lymph # 2.4 (1.2-5.4) K/mm3 [place] # 0.7 (0.0-0.8) K/mm3 Eos # 0.1 (0.0-0.4) K/mm3 Baso # 0.1 (0.0-0.1) K/mm3 Comprehensive Metabolic Panel 02/04/19 Range/Units 04:37 Sodium 141 (137-145) mmol/L Potassium 3.7 (3.6-5.0) mmol/L Chloride 106.0 (98-107) mmol/L Carbon Dioxide 23 (22-30) mmol/L BUN 12 (7-17) mg/dL Creatinine 0.7 (0.7-1.2) mg/dL Glucose 100 (65-100) mg/dL Calcium 10.3 H (8.4-10.2) mg/dL - Imaging and Cardiology EKG: report reviewed, image reviewed Echo: report reviewed (EF 55-60%, mild LVH, mild to mod MR, mild TR, borderline pulm HTN with RVSP 35mmHg. )
[2019-02-04] MEDS: MORPHINE IV PRN (15:22)
--- NOTE | 2019-02-04 15:50 | Discharge Summary ---
Providers - Providers Date of Admission: 02/01/19 16:41 Date of discharge: 02/04/19 Attending physician: DIANE DOLAN 02/01/19 22:55 Consult to Physician [CONS] Routine Comment: Consulting Provider: MARYAM VELEZ Physician Instructions: Reason For Exam: svt Primary care physician: ESCOBAR URRUTIA MD Hospitalization Reason for admission: chest pain 1 day duration Condition: Stable Pertinent studies: Stress test; transient ischemic dietitian of the left ventricle with 3 times a day ratio of 1.32 small mild reversible apical perfusion defect no wall motion abnormalities and ejection fraction 63% Heart cath: Normal LV function and normal coronaries echocardiogram; he F 55-60%, mild LVH Chest x-ray; no acute abnormalities Hospital course: 73-year-old female with history of hypertension asthma and GERD comes in for palpitations and chest pain since morning. Chest pain and palpitations or intermittent. No diaphoresis. No shortness of breath. Patient had similar episode in 2017 and was treated. 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 Not on anticoagulation. Ejection fraction showed 55-60% at that time. Patient underwent stress test which was abnormal, subsequently had left heart catheterization which revealed normal LV function and nonobstructive coronary disease.Patient came in with A. fib with rapid ventricle rate which was resolved, no indication for anticoagulation at this point as, patient had brief episode of A. fib,And did not have episodes of therapy during the hospital stay, Cardiology cleared for discharge follow-up in the office per schedule Patient is stable at discharge --Abnormal stress test today; Continue current cardiac medications, possible heart cath tomorrow Cardiology following --A. fib with rapid ventricular rate Current Visit: Yes Status: Acute Plan to address problem: s/p Cardizem drip ,now on oral cardizem transitioned to oral Cardizem, Now sinus rhythm, Defer need for anticoagulation to cardiology -- Hypernatremia; salt Current Visit: Yes Status: Acute Plan to address problem: Closely monitor -- Hypertension Current Visit: Yes Status: Chronic Plan to address problem: Continue antihypertensives, moderate control -- Asthma Current Visit: Yes Status: Chronic Continue Singulair and Flovent, oxygen as needed -- GERD (gastroesophageal reflux disease) Current Visit: Yes Status: Chronic Continue PPIs -- DVT prophylaxis Current Visit: Yes Status: Acute Plan to address problem: On Lovenox and GI prophylaxis Monitor closely and adjust management as needed Disposition; follow heart cath tomorrow And discharged when stable Disposition: DC-01 TO HOME OR SELFCARE Time spent for discharge: 32 min Core Measure Documentation - Palliative Care Palliative Care/ Comfort Measures: Not Applicable - Core Measures Any of the following diagnoses?: none Exam - Constitutional Vitals: Temp Pulse Resp BP Pulse Ox 97.9 F 78 14 141/70 97 02/04/19 12:03 02/04/19 15:42 02/04/19 12:03 02/04/19 12:03 02/04/19 12:03 General appearance: Present: no acute distress, well-nourished - EENT Eyes: Present: PERRL, EOM intact - Neck Neck: Present: supple, normal ROM - Respiratory Respiratory effort: normal Respiratory: bilateral: diminished, negative: rales, rhonchi, wheezing - Cardiovascular Rhythm: regular Heart Sounds: Present: S1 & S2 - Extremities Extremities: no ischemia, No edema - Abdominal General gastrointestinal: Present: soft, non-distended, normal bowel sounds - Integumentary Integumentary: Present: clear, warm - Musculoskeletal Musculoskeletal: strength equal bilaterally, generalized weakness - Psychiatric Psychiatric: appropriate mood/affect, cooperative - Neurologic Neurologic: CNII-XII intact, moves all extremities Plan Activity: advance as tolerated, fall precautions Diet: other (cardiac diet) Special Instructions: smoking cessation Additional Instructions: No need for anticoagulants at this time in regards to AFib due to transient duration of AFib with no reoccurrence noted since admission. Recommend follow up Dr. Stevenson within 1-2 weeks of hospital discharge ([phone]). Follow up with: PRIMARY CARE, [Referring] - 3-5 Days YUKI STEVENSON MD [Staff Physician] - 14 Days Prescriptions: dilTIAZem CD [Cardizem Cd] 180 mg PO QDAY #30 cap Famotidine [Pepcid] 20 mg PO BID #30 tablet
[2019-02-04 16:31] VITALS: BP 148/83
== END 2019-02-04 18:33 | disposition home or self-care (01) | DRG 287 ==
LOC: ED 14:16 → 4A 16:41
PROVIDERS: ADMIT Internal Medicine; ATTEND Internal Medicine
PROC: 4A023N7 Measurement of Cardiac Sampling and Pressure, Left Heart, Percutaneous Approach (ICD-10-PCS; principal; 2019-02-04)
PROC: B2111ZZ Fluoroscopy of Multiple Coronary Arteries using Low Osmolar Contrast (ICD-10-PCS; 2019-02-04)
PROC: B2151ZZ Fluoroscopy of Left Heart using Low Osmolar Contrast (ICD-10-PCS; 2019-02-04)
DX: I48.91 Unspecified atrial fibrillation (principal); E87.0 Hyperosmolality and hypernatremia; I44.0 Atrioventricular block, first degree; I45.10 Unspecified right bundle-branch block; I47.1 Supraventricular tachycardia; I44.4 Left anterior fascicular block; K21.9 Gastro-esophageal reflux disease without esophagitis; B19.20 Unspecified viral hepatitis C without hepatic coma; G43.909 Migraine, unspecified, not intractable, without status migrainosus; J45.909 Unspecified asthma, uncomplicated; G56.00 Carpal tunnel syndrome, unspecified upper limb; I10 Essential (primary) hypertension; I27.20 Pulmonary hypertension, unspecified; I08.1 Rheumatic disorders of both mitral and tricuspid valves; Z88.5 Allergy status to narcotic agent; Z90.710 Acquired absence of both cervix and uterus; Z88.8 Allergy status to other drugs, medicaments and biological substances
CPT/HCPCS: 36415; 71045; 78452; 80048; 80053; 80076; 81001; 82962; 83036; 83735; 83880; 84439; 84443; 84484; 85025; 85610; 85730; 93005; 93010; 93017; 93306; 93458; 94640; 99406; G0378; A9502; J1644; J1650; J2250; J2270; J2785; J3010; J7030; Q9967